=== PATIENT | female | born 1960 | race Caucasian/White ===

== ENCOUNTER 2017-06-04 13:09 | Inpatient (IN) | payer MEDICARE ==
[2017-06-04 14:11] VITALS: BP 110/73
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
[2017-06-05] MEDS ORDERED: Magnesium Hydroxide (MOM) 30 mL UDC PO PRN (07:36)
[2017-06-05] MEDS ORDERED: Maalox 30 mL Cup PO PRN (07:36)
--- NOTE | 2017-06-05 11:25 | Internal Medicine Prog Note ---
Internal Medicine Subjective - Subjective Service Date: 06/05/17 Patient seen and examined:: with staff Patient is:: awake, verbal, in bed, confused Per staff patient has:: no adverse event Internal Medicine Objective - Results Recent Labs: Laboratory Last Values POC Glucose 104 MG/DL (70 - 105) 06/04/17 14:34 - Physical Exam Vitals and I&O: Vital Signs Temp 97.3 F 06/05/17 06:06 Pulse 91 06/05/17 06:06 Resp 20 06/05/17 06:06 BP 135/65 06/05/17 06:06 Pulse Ox 98 06/05/17 06:06 Intake & Output 06/04/17 06/05/17 06/05/17 18:59 06:59 18:59 Intake Total 480 Balance 480 Weight (lbs) 54.431 kg Intake: Oral 480 Other: # Voids 2 Weight Source Estimated Active Medications: Current Medications Acetaminophen (Tylenol) 650 mg PO Q4HR PRN PRN Reason: Mild Pain / Temp above 100 Stop: 08/04/17 07:35 Al Hydrox/Mg Hydrox/Simethicone (Maalox) 30 ml PO Q4HR PRN PRN Reason: GI DISTRESS Stop: 08/04/17 07:35 Amitriptyline HCl (Elavil) 20 mg PO HS ILYA PRN Reason: Protocol Stop: 08/04/17 20:59 Citalopram Hydrobromide (Celexa) 10 mg PO DAILY ILYA PRN Reason: Protocol Stop: 08/04/17 08:59 Clonazepam (Klonopin) 0.5 mg PO TID PRN; Protocol PRN Reason: Agitation Stop: 08/04/17 08:59 Lorazepam (Ativan) 0.5 mg PO Q4HR PRN; Protocol PRN Reason: Anxiety Stop: 07/05/17 07:35 Magnesium Hydroxide (Milk Of Magnesia) 30 ml PO HS PRN PRN Reason: Constipation Mirtazapine (Remeron) 7.5 mg PO HS ILYA PRN Reason: Protocol Stop: 08/03/17 20:59 Last Admin: 06/04/17 21:19 Dose: 7.5 mg Multivitamins/Vitamin C (Theragran) 1 tab PO DAILY ILYA Stop: 08/04/17 08:59 Zolpidem Tartrate (Ambien) 5 mg PO HS PRN PRN Reason: Insomnia Stop: 08/04/17 07:35 General: demented HEENT: NC/AT, PERRLA, EOMI, anicteric sclerae, throat clear Neck: Supple, No JVD, No thyromegaly, +2 carotid pulse wo bruit, No LAD Lungs: CTAB Cardiovascular: RRR, Normal S1, Normal S2, without murmur Abdomen: non-tender, non-distended Extremities: clear Neurological: no change Internal Medicine Assmt/Plan - Assessment Assessment: 1.MULTIPLE SKIN LACERATION OF BOTH FOREARMS. 2.DJD. 3.CHRONIC SMOKING. 4.MAJOR DEPRESSION. - Plan Plan: CHANGE DRESSING WITH BACTROBAN 2/ ONCE A DAY.
--- NOTE | 2017-06-06 03:20 | Progress Notes ---
DATE: 06/05/2017 Case discussed with staff of the patient and reviewed records. The patient continues to be depressed and overwhelmed. She has severe cuts to both of her forearms and wrists. The patient has no memory of what happened. She admits to cutting her arms. Today, I can see the parts were covered and there were full of cuts. She wanted to . Today, she is more cooperative. She continues to have thoughts of wanting to harm himself. The patient had 2 prior suicide attempts as a child. I did initiate Remeron on this patient. She used to be on Cymbalta and she does not like the Cymbalta, so apparently, she used to be on Elavil, temazepam, Cymbalta and Lyrica. I would leave it up to the medical doctor to decide how much Lyrica he wants her on per day. I initiated Remeron on this patient. I will also discontinue Celexa and keep the patient on Remeron to start with and then adjust medication as needed. We will continue outpatient group therapy, milieu therapy, and adjust the medication as needed. JOB# [id number]
[2017-06-06 07:08] LABS: % BASOPHILS 0.4 % (0.0-2.0); MEAN PLATELET VOLUME 7.8 fl; WHITE BLOOD COUNT 7.1 Th/cmm (4.8-10.8)
[2017-06-06 07:12] LABS: % EOSINOPHILS 0.6 % (0.0-5.0); % LYMPHOCYTES 36.9 % (20.0-50.0); % MONOCYTES 11.1 % (2.0-10.0); HEMATOCRIT 41.3 % (41.0-60); HEMOGLOBIN 13.8 gm/dL (12-16); LYMPHOCYTE ABSOLUTE 2.6 Th/cmm (1.5-3.0); MEAN CELL VOLUME 103.4 fl (81-100); MEAN CORPUSCULAR HEMOGLOBIN 34.5 pg (27.0-31.0); MEAN CORPUSCULAR HGB CONC 33.4 pg (28.0-36.0); MONOCYTE ABSOLUTE 0.8 Th/cmm (0.3-1.0); NEUTROPHILE ABSOLUTE 3.7 Th/cmm (1.8-8.0); PLATELET COUNT 305 Th/cmm (150-400); RED CELL DISTRIBUTION WIDTH 11.8 % (11.5-20.0)
[2017-06-06 07:18] LABS: ALB/GLOB RATIO 1.6 (1.0-1.8); ALBUMIN 4.4 gm/dL (3.7-5.3); ALKALINE PHOSPHATASE 60 U/L (34-104); ANION GAP 13.2 (7.0-16.0); BILIRUBIN,TOTAL 0.6 mg/dL (0.3-1.0); BUN - UREA NITROGEN 10 mg/dL (7-25); CALCIUM SERUM 9.6 mg/dL (8.6-10.3); CARBON DIOXIDE 24.5 mEq/L (21.0-31.0); CHLORIDE 102 mEq/L (98-107); CREATININE - SERUM 0.5 mg/dL (0.6-1.2); GFR AFRICAN-AMERICAN > 60.0 ml/min (>90); GFR NON AFRICAN-AMERICAN > 60.0 ml/min; GLUCOSE 101 mg/dL (70-105); POTASSIUM SERUM 3.7 mEq/L (3.5-5.1); SGOT 34 U/L (13-39); SGPT/ALT 28 U/L (7-52); SODIUM SERUM 136 mEq/L (136-145); TOTAL PROTEIN,SERUM 7.2 gm/dL (6.0-8.3)
[2017-06-06] MEDS: Multivitamin Tab PO SCH (09:26)
--- NOTE | 2017-06-06 20:12 | Progress Notes ---
DATE: 06/06/2017 Case was discussed with staff of the patient. The patient was tearful today. She reports she is hearing voices, but she denies that there are command hallucinations. She was fearful. She reports she slept better. She continues to be depressed, overwhelmed, unable to make safe plan for self-care. I will be initiating Abilify on her to help with the hallucinations. She is still unpredictable, impulsive, and needing redirection. Discussed the side effects of the medications and so far no side effects with the Remeron. No sedation. Her current other medications besides Remeron 7.5 mg at bedtime are clonazepam 0.5 mg 3 times a day as needed, which I discontinued, lorazepam 0.5 mg as needed, put on magnesium hydroxide as needed and multivitamin 1 tablet daily. ____ Bactroban that was discontinued. They changed to ____ once apply daily and Ambien 5 mg at bedtime as needed. She is nonsmoker. She is not sure if she got the flu vaccine. Her lab work showed her CBC with high MCV, high MCH, high monocyte and ____ low creatinine. The rest within normal range. We will continue to work with the patient in group therapy, milieu therapy, and adjust medication as needed. JOB# [id number]
--- NOTE | 2017-06-06 21:53 | Internal Medicine Prog Note ---
Internal Medicine Subjective - Subjective Service Date: 06/06/17 Patient seen and examined:: with staff Patient is:: awake, verbal, in bed, confused Per staff patient has:: no adverse event Internal Medicine Objective - Results Result Diagrams: 06/06/17 06:40 06/06/17 06:40 Recent Labs: Laboratory Last Values WBC 7.1 Th/cmm (4.8-10.8) 06/06/17 06:40 RBC 4.00 Mil/cmm (3.80-5.10) 06/06/17 06:40 Hgb 13.8 gm/dL (12-16) 06/06/17 06:40 Hct 41.3 % (41.0-60) 06/06/17 06:40 MCV 103.4 fl (81-100) H 06/06/17 06:40 MCH 34.5 pg (27.0-31.0) H 06/06/17 06:40 MCHC Differential 33.4 pg (28.0-36.0) 06/06/17 06:40 RDW 11.8 % (11.5-20.0) 06/06/17 06:40 Plt Count 305 Th/cmm (150-400) 06/06/17 06:40 MPV 7.8 fl 06/06/17 06:40 Neutrophils % 51.0 % (40.0-80.0) 06/06/17 06:40 Lymphocytes % 36.9 % (20.0-50.0) 06/06/17 06:40 Monocytes % 11.1 % (2.0-10.0) H 06/06/17 06:40 Eosinophils % 0.6 % (0.0-5.0) 06/06/17 06:40 Basophils % 0.4 % (0.0-2.0) 06/06/17 06:40 Sodium 136 mEq/L (136-145) 06/06/17 06:40 Potassium 3.7 mEq/L (3.5-5.1) 06/06/17 06:40 Chloride 102 mEq/L (98-107) 06/06/17 06:40 Carbon Dioxide 24.5 mEq/L (21.0-31.0) 06/06/17 06:40 Anion Gap 13.2 (7.0-16.0) 06/06/17 06:40 BUN 10 mg/dL (7-25) 06/06/17 06:40 Creatinine 0.5 mg/dL (0.6-1.2) L 06/06/17 06:40 Est GFR ( Amer) > 60.0 ml/min (>90) 06/06/17 06:40 Est GFR (Non-Af Amer) > 60.0 ml/min 06/06/17 06:40 BUN/Creatinine Ratio 20.0 06/06/17 06:40 Glucose 101 mg/dL (70-105) 06/06/17 06:40 POC Glucose 104 MG/DL (70 - 105) 06/04/17 14:34 Calcium 9.6 mg/dL (8.6-10.3) 06/06/17 06:40 Total Bilirubin 0.6 mg/dL (0.3-1.0) 06/06/17 06:40 AST 34 U/L (13-39) 06/06/17 06:40 ALT 28 U/L (7-52) 06/06/17 06:40 Alkaline Phosphatase 60 U/L (34-104) 06/06/17 06:40 Total Protein 7.2 gm/dL (6.0-8.3) 06/06/17 06:40 Albumin 4.4 gm/dL (3.7-5.3) 06/06/17 06:40 Globulin 2.8 gm/dL 06/06/17 06:40 Albumin/Globulin Ratio 1.6 (1.0-1.8) 06/06/17 06:40 - Physical Exam Vitals and I&O: Vital Signs Temp 96.9 F 06/06/17 20:00 Pulse 86 06/06/17 20:00 Resp 19 06/06/17 20:00 BP 130/79 06/06/17 20:00 Pulse Ox 98 06/06/17 20:00 Intake & Output 06/06/17 06/06/17 06/07/17 06:59 18:59 06:59 Intake Total 120 1200 Balance 120 1200 Intake: Oral 120 1200 Other: # Voids 3 3 Active Medications: Current Medications Acetaminophen (Tylenol) 650 mg PO Q4HR PRN PRN Reason: Mild Pain / Temp above 100 Stop: 08/04/17 07:35 Last Admin: 06/06/17 20:39 Dose: 650 mg Al Hydrox/Mg Hydrox/Simethicone (Maalox) 30 ml PO Q4HR PRN PRN Reason: GI DISTRESS Stop: 08/04/17 07:35 Aripiprazole (Abilify) 5 mg PO DAILY ILYA PRN Reason: Protocol Stop: 08/05/17 08:59 Last Admin: 06/06/17 09:00 Dose: 5 mg Lorazepam (Ativan) 0.5 mg PO Q4HR PRN; Protocol PRN Reason: Anxiety Stop: 07/05/17 07:35 Magnesium Hydroxide (Milk Of Magnesia) 30 ml PO HS PRN PRN Reason: Constipation Mirtazapine (Remeron) 7.5 mg PO HS ILYA PRN Reason: Protocol Stop: 08/03/17 20:59 Last Admin: 06/06/17 20:37 Dose: 7.5 mg Multivitamins/Vitamin C (Theragran) 1 tab PO DAILY ILYA Stop: 08/04/17 08:59 Last Admin: 06/06/17 09:26 Dose: 1 tab Mupirocin (Bactroban Oint) 1 appl TP DAILY ILYA Stop: 06/19/17 11:23 Last Admin: 06/06/17 10:54 Dose: 1 appl Zolpidem Tartrate (Ambien) 5 mg PO HS PRN PRN Reason: Insomnia Stop: 08/04/17 07:35 General: demented HEENT: NC/AT, PERRLA, EOMI, anicteric sclerae, throat clear Neck: Supple, No JVD, No thyromegaly, +2 carotid pulse wo bruit, No LAD Lungs: CTAB Cardiovascular: RRR, Normal S1, Normal S2, without murmur Abdomen: non-tender, non-distended Extremities: clear Neurological: no change Internal Medicine Assmt/Plan - Assessment Assessment: 1.MULTIPLE SKIN LACERATION OF BOTH FOREARMS. 2.DJD. 3.Copd 4.MAJOR DEPRESSION. - Plan Plan: CHANGE DRESSING WITH BACTROBAN 2/ ONCE A DAY.
[2017-06-07] MEDS ORDERED: Haloperidol Lactate 5 mg/mL 1mL Vial ONE (07:23)
[2017-06-07] MEDS ORDERED: Haloperidol Lactate 5 mg/mL 1mL Vial IM ONE (07:30)
[2017-06-07] MEDS: Multivitamin Tab PO SCH (10:10)
--- NOTE | 2017-06-07 16:40 | Internal Medicine Prog Note ---
Internal Medicine Subjective - Subjective Service Date: 06/07/17 Patient seen and examined:: with staff Patient is:: awake, verbal, in bed, confused Per staff patient has:: no adverse event Internal Medicine Objective - Results Result Diagrams: 06/06/17 06:40 06/06/17 06:40 Recent Labs: Laboratory Last Values WBC 7.1 Th/cmm (4.8-10.8) 06/06/17 06:40 RBC 4.00 Mil/cmm (3.80-5.10) 06/06/17 06:40 Hgb 13.8 gm/dL (12-16) 06/06/17 06:40 Hct 41.3 % (41.0-60) 06/06/17 06:40 MCV 103.4 fl (81-100) H 06/06/17 06:40 MCH 34.5 pg (27.0-31.0) H 06/06/17 06:40 MCHC Differential 33.4 pg (28.0-36.0) 06/06/17 06:40 RDW 11.8 % (11.5-20.0) 06/06/17 06:40 Plt Count 305 Th/cmm (150-400) 06/06/17 06:40 MPV 7.8 fl 06/06/17 06:40 Neutrophils % 51.0 % (40.0-80.0) 06/06/17 06:40 Lymphocytes % 36.9 % (20.0-50.0) 06/06/17 06:40 Monocytes % 11.1 % (2.0-10.0) H 06/06/17 06:40 Eosinophils % 0.6 % (0.0-5.0) 06/06/17 06:40 Basophils % 0.4 % (0.0-2.0) 06/06/17 06:40 Sodium 136 mEq/L (136-145) 06/06/17 06:40 Potassium 3.7 mEq/L (3.5-5.1) 06/06/17 06:40 Chloride 102 mEq/L (98-107) 06/06/17 06:40 Carbon Dioxide 24.5 mEq/L (21.0-31.0) 06/06/17 06:40 Anion Gap 13.2 (7.0-16.0) 06/06/17 06:40 BUN 10 mg/dL (7-25) 06/06/17 06:40 Creatinine 0.5 mg/dL (0.6-1.2) L 06/06/17 06:40 Est GFR ( Amer) > 60.0 ml/min (>90) 06/06/17 06:40 Est GFR (Non-Af Amer) > 60.0 ml/min 06/06/17 06:40 BUN/Creatinine Ratio 20.0 06/06/17 06:40 Glucose 101 mg/dL (70-105) 06/06/17 06:40 POC Glucose 104 MG/DL (70 - 105) 06/04/17 14:34 Calcium 9.6 mg/dL (8.6-10.3) 06/06/17 06:40 Total Bilirubin 0.6 mg/dL (0.3-1.0) 06/06/17 06:40 AST 34 U/L (13-39) 06/06/17 06:40 ALT 28 U/L (7-52) 06/06/17 06:40 Alkaline Phosphatase 60 U/L (34-104) 06/06/17 06:40 Total Protein 7.2 gm/dL (6.0-8.3) 06/06/17 06:40 Albumin 4.4 gm/dL (3.7-5.3) 06/06/17 06:40 Globulin 2.8 gm/dL 06/06/17 06:40 Albumin/Globulin Ratio 1.6 (1.0-1.8) 06/06/17 06:40 - Physical Exam Vitals and I&O: Vital Signs Temp 97.8 F 06/07/17 15:20 Pulse 92 06/07/17 15:20 Resp 18 06/07/17 15:20 BP 105/56 06/07/17 15:20 Pulse Ox 96 06/07/17 15:20 Intake & Output 06/06/17 06/07/17 06/07/17 18:59 06:59 18:59 Intake Total 1200 120 Balance 1200 120 Intake: Oral 1200 120 Other: # Voids 3 3 Active Medications: Current Medications Acetaminophen (Tylenol) 650 mg PO Q4HR PRN PRN Reason: Mild Pain / Temp above 100 Stop: 08/04/17 07:35 Last Admin: 06/06/17 20:39 Dose: 650 mg Al Hydrox/Mg Hydrox/Simethicone (Maalox) 30 ml PO Q4HR PRN PRN Reason: GI DISTRESS Stop: 08/04/17 07:35 Aripiprazole (Abilify) 10 mg PO DAILY ILYA PRN Reason: Protocol Stop: 08/06/17 11:38 Lorazepam (Ativan) 0.5 mg PO Q4HR PRN; Protocol PRN Reason: Anxiety Stop: 07/05/17 07:35 Magnesium Hydroxide (Milk Of Magnesia) 30 ml PO HS PRN PRN Reason: Constipation Mirtazapine (Remeron) 7.5 mg PO HS ILYA PRN Reason: Protocol Stop: 08/03/17 20:59 Last Admin: 06/06/17 20:37 Dose: 7.5 mg Multivitamins/Vitamin C (Theragran) 1 tab PO DAILY ILYA Stop: 08/04/17 08:59 Last Admin: 06/07/17 10:10 Dose: Not Given Mupirocin (Bactroban Oint) 1 appl TP DAILY ILYA Stop: 06/19/17 11:23 Last Admin: 06/06/17 10:54 Dose: 1 appl Zolpidem Tartrate (Ambien) 5 mg PO HS PRN PRN Reason: Insomnia Stop: 08/04/17 07:35 General: demented HEENT: NC/AT, PERRLA, EOMI, anicteric sclerae, throat clear Neck: Supple, No JVD, No thyromegaly, +2 carotid pulse wo bruit, No LAD Lungs: CTAB Cardiovascular: RRR, Normal S1, Normal S2, without murmur Abdomen: non-tender, non-distended Extremities: clear Neurological: no change Internal Medicine Assmt/Plan - Assessment Assessment: 1.MULTIPLE SKIN LACERATION OF BOTH FOREARMS. 2.DJD. 3.Copd 4.MAJOR DEPRESSION. - Plan Plan: CHANGE DRESSING WITH BACTROBAN 2/ ONCE A DAY.
--- NOTE | 2017-06-08 01:33 | Progress Notes ---
DATE: 06/07/2017 Case was discussed with staff of the patient, reviewed records. The patient was found on the floor naked yesterday with her legs open. She was psychotic. She was responding to internal stimuli, unpredictable, impulsive, needing redirection, had to be medicated with Haldol 5 mg and Ativan and Benadryl that was given by Dr. Mills who was happens to be here when this happens. She continues to have poor insight about her behavior. Apparently, she has been living with her , I am not sure if she can take care of her, so we are trying to see if she needs to go to a rehab facility and so far no side effects with the medication, no sedation, no nausea, no extrapyramidal symptoms and I will be increasing the Abilify to 10 mg daily and we will continue to work with the patient in group therapy, milieu therapy, adjust the medication as needed. Her lab work showed her CBC with high MCV, high MCH and high monocyte. The rest within normal range. Chemistry panel with low creatinine and the rest within normal range. JOB# [id number]
[2017-06-08] MEDS: Multivitamin Tab PO SCH (09:00)
--- NOTE | 2017-06-08 22:03 | Internal Medicine Prog Note ---
Internal Medicine Subjective - Subjective Service Date: 06/08/17 Patient seen and examined:: with staff Patient is:: awake, verbal, in bed, confused Per staff patient has:: no adverse event Internal Medicine Objective - Results Result Diagrams: 06/06/17 06:40 06/06/17 06:40 Recent Labs: Laboratory Last Values WBC 7.1 Th/cmm (4.8-10.8) 06/06/17 06:40 RBC 4.00 Mil/cmm (3.80-5.10) 06/06/17 06:40 Hgb 13.8 gm/dL (12-16) 06/06/17 06:40 Hct 41.3 % (41.0-60) 06/06/17 06:40 MCV 103.4 fl (81-100) H 06/06/17 06:40 MCH 34.5 pg (27.0-31.0) H 06/06/17 06:40 MCHC Differential 33.4 pg (28.0-36.0) 06/06/17 06:40 RDW 11.8 % (11.5-20.0) 06/06/17 06:40 Plt Count 305 Th/cmm (150-400) 06/06/17 06:40 MPV 7.8 fl 06/06/17 06:40 Neutrophils % 51.0 % (40.0-80.0) 06/06/17 06:40 Lymphocytes % 36.9 % (20.0-50.0) 06/06/17 06:40 Monocytes % 11.1 % (2.0-10.0) H 06/06/17 06:40 Eosinophils % 0.6 % (0.0-5.0) 06/06/17 06:40 Basophils % 0.4 % (0.0-2.0) 06/06/17 06:40 Sodium 136 mEq/L (136-145) 06/06/17 06:40 Potassium 3.7 mEq/L (3.5-5.1) 06/06/17 06:40 Chloride 102 mEq/L (98-107) 06/06/17 06:40 Carbon Dioxide 24.5 mEq/L (21.0-31.0) 06/06/17 06:40 Anion Gap 13.2 (7.0-16.0) 06/06/17 06:40 BUN 10 mg/dL (7-25) 06/06/17 06:40 Creatinine 0.5 mg/dL (0.6-1.2) L 06/06/17 06:40 Est GFR ( Amer) > 60.0 ml/min (>90) 06/06/17 06:40 Est GFR (Non-Af Amer) > 60.0 ml/min 06/06/17 06:40 BUN/Creatinine Ratio 20.0 06/06/17 06:40 Glucose 101 mg/dL (70-105) 06/06/17 06:40 POC Glucose 104 MG/DL (70 - 105) 06/04/17 14:34 Calcium 9.6 mg/dL (8.6-10.3) 06/06/17 06:40 Total Bilirubin 0.6 mg/dL (0.3-1.0) 06/06/17 06:40 AST 34 U/L (13-39) 06/06/17 06:40 ALT 28 U/L (7-52) 06/06/17 06:40 Alkaline Phosphatase 60 U/L (34-104) 06/06/17 06:40 Total Protein 7.2 gm/dL (6.0-8.3) 06/06/17 06:40 Albumin 4.4 gm/dL (3.7-5.3) 06/06/17 06:40 Globulin 2.8 gm/dL 06/06/17 06:40 Albumin/Globulin Ratio 1.6 (1.0-1.8) 06/06/17 06:40 - Physical Exam Vitals and I&O: Vital Signs Temp 97.4 F 06/08/17 14:00 Pulse 90 06/08/17 14:00 Resp 18 06/08/17 14:00 BP 120/77 06/08/17 14:00 Pulse Ox 98 06/08/17 14:00 Intake & Output 06/08/17 06/08/17 06/09/17 06:59 18:59 06:59 Intake Total 1200 900 Balance 1200 900 Intake: Oral 1200 900 Other: # Voids 3 4 # Bowel Movements 1 Active Medications: Current Medications Acetaminophen (Tylenol) 650 mg PO Q4HR PRN PRN Reason: Mild Pain / Temp above 100 Stop: 08/04/17 07:35 Last Admin: 06/06/17 20:39 Dose: 650 mg Al Hydrox/Mg Hydrox/Simethicone (Maalox) 30 ml PO Q4HR PRN PRN Reason: GI DISTRESS Stop: 08/04/17 07:35 Aripiprazole (Abilify) 10 mg PO DAILY ILYA PRN Reason: Protocol Stop: 08/06/17 11:38 Last Admin: 06/08/17 09:00 Dose: 10 mg Lorazepam (Ativan) 0.5 mg PO Q4HR PRN; Protocol PRN Reason: Anxiety Stop: 07/05/17 07:35 Last Admin: 06/08/17 02:00 Dose: 0.5 mg Magnesium Hydroxide (Milk Of Magnesia) 30 ml PO HS PRN PRN Reason: Constipation Mirtazapine (Remeron) 7.5 mg PO HS ILYA PRN Reason: Protocol Stop: 08/03/17 20:59 Last Admin: 06/08/17 21:07 Dose: 7.5 mg Multivitamins/Vitamin C (Theragran) 1 tab PO DAILY ILYA Stop: 08/04/17 08:59 Last Admin: 06/08/17 09:00 Dose: 1 tab Mupirocin (Bactroban Oint) 1 appl TP DAILY ILYA Stop: 06/19/17 11:23 Last Admin: 06/08/17 17:16 Dose: Not Given Zolpidem Tartrate (Ambien) 5 mg PO HS PRN PRN Reason: Insomnia Stop: 08/04/17 07:35 Last Admin: 06/08/17 21:07 Dose: 5 mg General: demented HEENT: NC/AT, PERRLA, EOMI, anicteric sclerae, throat clear Neck: Supple, No JVD, No thyromegaly, +2 carotid pulse wo bruit, No LAD Lungs: CTAB Cardiovascular: RRR, Normal S1, Normal S2, without murmur Abdomen: non-tender, non-distended Extremities: clear Neurological: no change Internal Medicine Assmt/Plan - Assessment Assessment: 1.MULTIPLE SKIN LACERATION OF BOTH FOREARMS. 2.DJD. 3.Copd 4.MAJOR DEPRESSION. - Plan Plan: CHANGE DRESSING WITH BACTROBAN 2/ ONCE A DAY.
--- NOTE | 2017-06-09 00:47 | Consultation ---
DATE OF CONSULTATION: 06/08/2017 SUBJECTIVE: Case was discussed with the staff of the patient and reviewed records. The patient continues to be internally preoccupied, psychotic, very poor insight about her psychotic symptoms, continues to be unpredictable, impulsive, continues to have poor insight. Her who discussed the case with the rn case manager hospice reported that ____ willing to make sure he will take care of her upon discharge. Also I agreed that she may need to go to a place for a while until she is stable. She is sleeping better, eating better, continues to be internally preoccupied, unable to make safe a plan for self-care. She continues to report hearing voices at times; however, no side effects to the medication, no sedation, no nausea, no extrapyramidal symptoms. Still unpredictable, impulsive, needing redirections, still not ready to go to a lesser level of care because of her psychotic symptoms and serious suicide attempts from multiple longitudinal lacerations to both of her forearms. I did increase Abilify yesterday, it is early to make further adjustment. She is also on multivitamin and ____ ointment and we will continue to work with the patient in group therapy, milieu therapy, adjust medications as needed. JOB# [id number]
[2017-06-09] MEDS: Multivitamin Tab PO SCH (08:56)
--- NOTE | 2017-06-09 10:47 | Internal Medicine Prog Note ---
Internal Medicine Subjective - Subjective Service Date: 06/09/17 Patient seen and examined:: with staff (SHE DENIES ANY PAIN) Patient is:: awake, verbal, in bed, confused Per staff patient has:: no adverse event Internal Medicine Objective - Results Result Diagrams: 06/06/17 06:40 06/06/17 06:40 Recent Labs: Laboratory Last Values WBC 7.1 Th/cmm (4.8-10.8) 06/06/17 06:40 RBC 4.00 Mil/cmm (3.80-5.10) 06/06/17 06:40 Hgb 13.8 gm/dL (12-16) 06/06/17 06:40 Hct 41.3 % (41.0-60) 06/06/17 06:40 MCV 103.4 fl (81-100) H 06/06/17 06:40 MCH 34.5 pg (27.0-31.0) H 06/06/17 06:40 MCHC Differential 33.4 pg (28.0-36.0) 06/06/17 06:40 RDW 11.8 % (11.5-20.0) 06/06/17 06:40 Plt Count 305 Th/cmm (150-400) 06/06/17 06:40 MPV 7.8 fl 06/06/17 06:40 Neutrophils % 51.0 % (40.0-80.0) 06/06/17 06:40 Lymphocytes % 36.9 % (20.0-50.0) 06/06/17 06:40 Monocytes % 11.1 % (2.0-10.0) H 06/06/17 06:40 Eosinophils % 0.6 % (0.0-5.0) 06/06/17 06:40 Basophils % 0.4 % (0.0-2.0) 06/06/17 06:40 Sodium 136 mEq/L (136-145) 06/06/17 06:40 Potassium 3.7 mEq/L (3.5-5.1) 06/06/17 06:40 Chloride 102 mEq/L (98-107) 06/06/17 06:40 Carbon Dioxide 24.5 mEq/L (21.0-31.0) 06/06/17 06:40 Anion Gap 13.2 (7.0-16.0) 06/06/17 06:40 BUN 10 mg/dL (7-25) 06/06/17 06:40 Creatinine 0.5 mg/dL (0.6-1.2) L 06/06/17 06:40 Est GFR ( Amer) > 60.0 ml/min (>90) 06/06/17 06:40 Est GFR (Non-Af Amer) > 60.0 ml/min 06/06/17 06:40 BUN/Creatinine Ratio 20.0 06/06/17 06:40 Glucose 101 mg/dL (70-105) 06/06/17 06:40 POC Glucose 104 MG/DL (70 - 105) 06/04/17 14:34 Calcium 9.6 mg/dL (8.6-10.3) 06/06/17 06:40 Total Bilirubin 0.6 mg/dL (0.3-1.0) 06/06/17 06:40 AST 34 U/L (13-39) 06/06/17 06:40 ALT 28 U/L (7-52) 06/06/17 06:40 Alkaline Phosphatase 60 U/L (34-104) 06/06/17 06:40 Total Protein 7.2 gm/dL (6.0-8.3) 06/06/17 06:40 Albumin 4.4 gm/dL (3.7-5.3) 06/06/17 06:40 Globulin 2.8 gm/dL 06/06/17 06:40 Albumin/Globulin Ratio 1.6 (1.0-1.8) 06/06/17 06:40 - Physical Exam Vitals and I&O: Vital Signs Temp 98 F 06/09/17 06:25 Pulse 73 06/09/17 06:25 Resp 19 06/09/17 09:41 BP 111/66 06/09/17 06:25 Pulse Ox 97 06/09/17 06:25 Intake & Output 06/08/17 06/09/17 06/09/17 18:59 06:59 18:59 Intake Total 900 240 Balance 900 240 Intake: Oral 900 240 Other: # Voids 4 1 # Bowel Movements 1 Stool Characteristics Formed Brown Active Medications: Current Medications Acetaminophen (Tylenol) 650 mg PO Q4HR PRN PRN Reason: Mild Pain / Temp above 100 Stop: 08/04/17 07:35 Last Admin: 06/06/17 20:39 Dose: 650 mg Al Hydrox/Mg Hydrox/Simethicone (Maalox) 30 ml PO Q4HR PRN PRN Reason: GI DISTRESS Stop: 08/04/17 07:35 Aripiprazole (Abilify) 10 mg PO DAILY ILYA PRN Reason: Protocol Stop: 08/06/17 11:38 Last Admin: 06/09/17 08:56 Dose: 10 mg Lorazepam (Ativan) 0.5 mg PO Q4HR PRN; Protocol PRN Reason: Anxiety Stop: 07/05/17 07:35 Last Admin: 06/09/17 01:00 Dose: 0.5 mg Magnesium Hydroxide (Milk Of Magnesia) 30 ml PO HS PRN PRN Reason: Constipation Mirtazapine (Remeron) 7.5 mg PO HS ILYA PRN Reason: Protocol Stop: 08/03/17 20:59 Last Admin: 06/08/17 21:07 Dose: 7.5 mg Multivitamins/Vitamin C (Theragran) 1 tab PO DAILY ILYA Stop: 08/04/17 08:59 Last Admin: 06/09/17 08:56 Dose: 1 tab Mupirocin (Bactroban Oint) 1 appl TP DAILY ILYA Stop: 06/19/17 11:23 Last Admin: 06/09/17 10:11 Dose: 1 appl Zolpidem Tartrate (Ambien) 5 mg PO HS PRN PRN Reason: Insomnia Stop: 08/04/17 07:35 Last Admin: 06/08/17 21:07 Dose: 5 mg General: demented HEENT: NC/AT, PERRLA, EOMI, anicteric sclerae, throat clear Neck: Supple, No JVD, No thyromegaly, +2 carotid pulse wo bruit, No LAD Lungs: CTAB Cardiovascular: RRR, Normal S1, Normal S2, without murmur Abdomen: non-tender, non-distended Extremities: clear Neurological: no change Internal Medicine Assmt/Plan - Assessment Assessment: 1.MULTIPLE SKIN LACERATION OF BOTH FOREARMS. 2.DJD. 3.Copd 4.MAJOR DEPRESSION. - Plan Plan: CONTINUE ON CURRENT MEDICATION AND WOUND CARE.
[2017-06-10] MEDS: Multivitamin Tab PO SCH (08:41)
--- NOTE | 2017-06-10 21:08 | Internal Medicine Prog Note ---
Internal Medicine Subjective - Subjective Service Date: 06/10/17 Patient seen and examined:: without staff Patient is:: awake, verbal, in bed, confused Per staff patient has:: no adverse event Internal Medicine Objective - Results Result Diagrams: 06/06/17 06:40 06/06/17 06:40 Recent Labs: Laboratory Last Values WBC 7.1 Th/cmm (4.8-10.8) 06/06/17 06:40 RBC 4.00 Mil/cmm (3.80-5.10) 06/06/17 06:40 Hgb 13.8 gm/dL (12-16) 06/06/17 06:40 Hct 41.3 % (41.0-60) 06/06/17 06:40 MCV 103.4 fl (81-100) H 06/06/17 06:40 MCH 34.5 pg (27.0-31.0) H 06/06/17 06:40 MCHC Differential 33.4 pg (28.0-36.0) 06/06/17 06:40 RDW 11.8 % (11.5-20.0) 06/06/17 06:40 Plt Count 305 Th/cmm (150-400) 06/06/17 06:40 MPV 7.8 fl 06/06/17 06:40 Neutrophils % 51.0 % (40.0-80.0) 06/06/17 06:40 Lymphocytes % 36.9 % (20.0-50.0) 06/06/17 06:40 Monocytes % 11.1 % (2.0-10.0) H 06/06/17 06:40 Eosinophils % 0.6 % (0.0-5.0) 06/06/17 06:40 Basophils % 0.4 % (0.0-2.0) 06/06/17 06:40 Sodium 136 mEq/L (136-145) 06/06/17 06:40 Potassium 3.7 mEq/L (3.5-5.1) 06/06/17 06:40 Chloride 102 mEq/L (98-107) 06/06/17 06:40 Carbon Dioxide 24.5 mEq/L (21.0-31.0) 06/06/17 06:40 Anion Gap 13.2 (7.0-16.0) 06/06/17 06:40 BUN 10 mg/dL (7-25) 06/06/17 06:40 Creatinine 0.5 mg/dL (0.6-1.2) L 06/06/17 06:40 Est GFR ( Amer) > 60.0 ml/min (>90) 06/06/17 06:40 Est GFR (Non-Af Amer) > 60.0 ml/min 06/06/17 06:40 BUN/Creatinine Ratio 20.0 06/06/17 06:40 Glucose 101 mg/dL (70-105) 06/06/17 06:40 POC Glucose 104 MG/DL (70 - 105) 06/04/17 14:34 Calcium 9.6 mg/dL (8.6-10.3) 06/06/17 06:40 Total Bilirubin 0.6 mg/dL (0.3-1.0) 06/06/17 06:40 AST 34 U/L (13-39) 06/06/17 06:40 ALT 28 U/L (7-52) 06/06/17 06:40 Alkaline Phosphatase 60 U/L (34-104) 06/06/17 06:40 Total Protein 7.2 gm/dL (6.0-8.3) 06/06/17 06:40 Albumin 4.4 gm/dL (3.7-5.3) 06/06/17 06:40 Globulin 2.8 gm/dL 06/06/17 06:40 Albumin/Globulin Ratio 1.6 (1.0-1.8) 06/06/17 06:40 - Physical Exam Vitals and I&O: Vital Signs Temp 97.4 F 06/10/17 20:50 Pulse 72 06/10/17 20:50 Resp 19 06/10/17 20:50 BP 125/80 06/10/17 20:50 Pulse Ox 97 06/10/17 20:50 Intake & Output 06/10/17 06/10/17 06/11/17 06:59 18:59 06:59 Intake Total 120 1000 120 Balance 120 1000 120 Intake: Oral 120 1000 120 Other: # Voids 3 4 1 # Bowel Movements 1 0 Active Medications: Current Medications Acetaminophen (Tylenol) 650 mg PO Q4HR PRN PRN Reason: Mild Pain / Temp above 100 Stop: 08/04/17 07:35 Last Admin: 06/06/17 20:39 Dose: 650 mg Al Hydrox/Mg Hydrox/Simethicone (Maalox) 30 ml PO Q4HR PRN PRN Reason: GI DISTRESS Stop: 08/04/17 07:35 Aripiprazole (Abilify) 10 mg PO DAILY ILYA PRN Reason: Protocol Stop: 08/06/17 11:38 Last Admin: 06/10/17 08:41 Dose: 10 mg Lorazepam (Ativan) 0.5 mg PO Q4HR PRN; Protocol PRN Reason: Anxiety Stop: 07/05/17 07:35 Last Admin: 06/09/17 01:00 Dose: 0.5 mg Magnesium Hydroxide (Milk Of Magnesia) 30 ml PO HS PRN PRN Reason: Constipation Mirtazapine (Remeron) 7.5 mg PO HS ILYA PRN Reason: Protocol Stop: 08/03/17 20:59 Last Admin: 06/09/17 21:06 Dose: 7.5 mg Multivitamins/Vitamin C (Theragran) 1 tab PO DAILY ILYA Stop: 08/04/17 08:59 Last Admin: 06/10/17 08:41 Dose: 1 tab Mupirocin (Bactroban Oint) 1 appl TP DAILY ILYA Stop: 06/19/17 11:23 Last Admin: 06/10/17 10:49 Dose: 1 appl Zolpidem Tartrate (Ambien) 5 mg PO HS PRN PRN Reason: Insomnia Stop: 08/04/17 07:35 Last Admin: 06/09/17 21:17 Dose: 5 mg General: demented HEENT: NC/AT, PERRLA, EOMI, anicteric sclerae, throat clear Neck: Supple, No JVD, No thyromegaly, +2 carotid pulse wo bruit, No LAD Lungs: CTAB Cardiovascular: RRR, Normal S1, Normal S2, without murmur Abdomen: non-tender, non-distended Extremities: clear Neurological: no change Internal Medicine Assmt/Plan - Assessment Assessment: 1.MULTIPLE SKIN LACERATION OF BOTH FOREARMS. 2.DJD. 3.Copd 4.MAJOR DEPRESSION. - Plan Plan: CONTINUE ON CURRENT MEDICATION AND WOUND CARE.
[2017-06-11] MEDS: Multivitamin Tab PO SCH (09:44)
--- NOTE | 2017-06-11 10:17 | Progress Notes ---
DATE: 06/09/2017 COVERING FOR: Dr. Shaikh and Dr. Mills SUBJECTIVE: The patient interviewed. Case was discussed with staff and the chart was reviewed. The patient apparently has been depressed, she has been staying in her room and is withdrawn and very quiet. She barely leave the room and she needs prompting for her self-care. She has been taking her medications. She apparently is becoming much more calm. She states at bedside that she is feeling tired and she states that she continues to feel depressed. Apparently, she has cut herself on both arms. She is very guarded in regards to suicidal and homicidal ideations. The patient also is a minimally engaged with the interview, also withdrawn, also with the depressed affect. Poor eye contact and her speech is soft and minimal. ASSESSMENT: This is a 57-year-old female with a history of depression. The patient remained isolated in her room. She apparently has cut both arms leading to hospitalization. She remains withdrawn, depressed. Minimally engage with the interview. She apparently has been much more calm and improving and taking her medications. PLAN: I will continue the patient on acute hospitalization. I will continue medication as prescribed. I will encourage the patient to verbalize her needs. I will encourage the patient to participate in group and milieu therapy. Encourage the patient to work with social work and case picker for discharge planning. JOB# [id number]
--- NOTE | 2017-06-11 10:55 | Progress Notes ---
DATE: 06/10/[address] Jose Mills and Dr. Shaikh. SUBJECTIVE: The patient interviewed. Case discussed with staff and chart reviewed. The patient's addressing to her arms have been changed. She requires ongoing prompting for her self-care. She remains depressed. She is isolated. She is withdrawn. She is not attending groups. She is not socializing with others. She is not communicating her needs. MENTAL STATUS EXAMINATION: The patient appears depressed. She has a constricted affect. She is minimally engaged with the interview. She is very guarded. Her speech is soft and minimal. She appears to be confused and disorganized. Unable to assess suicidal, homicidal ideations as the patient states, "I don't know" and the patient in addition is alert and oriented to her name and she knows that she is in the hospital. Otherwise, she has a very poor insight, judgment poor. ASSESSMENT: This is a 57-year-old female with a history of depression. The patient at this time continues to remain depressed, isolative, withdrawn, stays in her room, not socializing with peers and others and require prompting for her needs. PLAN: We will continue the patient's acute hospitalization. Continue medication as prescribed. Encourage the patient to verbalize her need and to participate in group and milieu therapy. Encourage the patient to work with social work coordinator and spring encaser for discharge planning and need for community resources. JOB# [id number]
--- NOTE | 2017-06-11 21:45 | Internal Medicine Prog Note ---
Internal Medicine Subjective - Subjective Patient seen and examined:: without staff Patient is:: awake, verbal, in bed, confused Per staff patient has:: no adverse event Internal Medicine Objective - Results Result Diagrams: 06/06/17 06:40 06/06/17 06:40 Recent Labs: Laboratory Last Values WBC 7.1 Th/cmm (4.8-10.8) 06/06/17 06:40 RBC 4.00 Mil/cmm (3.80-5.10) 06/06/17 06:40 Hgb 13.8 gm/dL (12-16) 06/06/17 06:40 Hct 41.3 % (41.0-60) 06/06/17 06:40 MCV 103.4 fl (81-100) H 06/06/17 06:40 MCH 34.5 pg (27.0-31.0) H 06/06/17 06:40 MCHC Differential 33.4 pg (28.0-36.0) 06/06/17 06:40 RDW 11.8 % (11.5-20.0) 06/06/17 06:40 Plt Count 305 Th/cmm (150-400) 06/06/17 06:40 MPV 7.8 fl 06/06/17 06:40 Neutrophils % 51.0 % (40.0-80.0) 06/06/17 06:40 Lymphocytes % 36.9 % (20.0-50.0) 06/06/17 06:40 Monocytes % 11.1 % (2.0-10.0) H 06/06/17 06:40 Eosinophils % 0.6 % (0.0-5.0) 06/06/17 06:40 Basophils % 0.4 % (0.0-2.0) 06/06/17 06:40 Sodium 136 mEq/L (136-145) 06/06/17 06:40 Potassium 3.7 mEq/L (3.5-5.1) 06/06/17 06:40 Chloride 102 mEq/L (98-107) 06/06/17 06:40 Carbon Dioxide 24.5 mEq/L (21.0-31.0) 06/06/17 06:40 Anion Gap 13.2 (7.0-16.0) 06/06/17 06:40 BUN 10 mg/dL (7-25) 06/06/17 06:40 Creatinine 0.5 mg/dL (0.6-1.2) L 06/06/17 06:40 Est GFR ( Amer) > 60.0 ml/min (>90) 06/06/17 06:40 Est GFR (Non-Af Amer) > 60.0 ml/min 06/06/17 06:40 BUN/Creatinine Ratio 20.0 06/06/17 06:40 Glucose 101 mg/dL (70-105) 06/06/17 06:40 POC Glucose 104 MG/DL (70 - 105) 06/04/17 14:34 Calcium 9.6 mg/dL (8.6-10.3) 06/06/17 06:40 Total Bilirubin 0.6 mg/dL (0.3-1.0) 06/06/17 06:40 AST 34 U/L (13-39) 06/06/17 06:40 ALT 28 U/L (7-52) 06/06/17 06:40 Alkaline Phosphatase 60 U/L (34-104) 06/06/17 06:40 Total Protein 7.2 gm/dL (6.0-8.3) 06/06/17 06:40 Albumin 4.4 gm/dL (3.7-5.3) 06/06/17 06:40 Globulin 2.8 gm/dL 06/06/17 06:40 Albumin/Globulin Ratio 1.6 (1.0-1.8) 06/06/17 06:40 - Physical Exam Vitals and I&O: Vital Signs Temp 98.6 F 06/11/17 20:11 Pulse 86 06/11/17 20:11 Resp 19 06/11/17 20:11 BP 93/58 06/11/17 20:11 Pulse Ox 96 06/11/17 20:11 Intake & Output 06/11/17 06/11/17 06/12/17 06:59 18:59 06:59 Intake Total 240 900 240 Balance 240 900 240 Intake: Oral 240 900 240 Other: # Voids 2 3 1 # Bowel Movements 0 1 Active Medications: Current Medications Acetaminophen (Tylenol) 650 mg PO Q4HR PRN PRN Reason: Mild Pain / Temp above 100 Stop: 08/04/17 07:35 Last Admin: 06/06/17 20:39 Dose: 650 mg Al Hydrox/Mg Hydrox/Simethicone (Maalox) 30 ml PO Q4HR PRN PRN Reason: GI DISTRESS Stop: 08/04/17 07:35 Aripiprazole (Abilify) 10 mg PO DAILY ILYA PRN Reason: Protocol Stop: 08/06/17 11:38 Last Admin: 06/11/17 09:44 Dose: 10 mg Lorazepam (Ativan) 0.5 mg PO Q4HR PRN; Protocol PRN Reason: Anxiety Stop: 07/05/17 07:35 Last Admin: 06/11/17 09:44 Dose: 0.5 mg Magnesium Hydroxide (Milk Of Magnesia) 30 ml PO HS PRN PRN Reason: Constipation Mirtazapine (Remeron) 15 mg PO HS ILYA PRN Reason: Protocol Stop: 08/10/17 12:57 Last Admin: 06/11/17 21:02 Dose: 15 mg Multivitamins/Vitamin C (Theragran) 1 tab PO DAILY ILYA Stop: 08/04/17 08:59 Last Admin: 06/11/17 09:44 Dose: 1 tab Mupirocin (Bactroban Oint) 1 appl TP DAILY ILYA Stop: 06/19/17 11:23 Last Admin: 06/11/17 09:44 Dose: Not Given Zolpidem Tartrate (Ambien) 5 mg PO HS PRN PRN Reason: Insomnia Stop: 08/04/17 07:35 Last Admin: 06/10/17 21:16 Dose: 5 mg General: demented HEENT: NC/AT, PERRLA, EOMI, anicteric sclerae, throat clear Neck: Supple, No JVD, No thyromegaly, +2 carotid pulse wo bruit, No LAD Lungs: CTAB Cardiovascular: RRR, Normal S1, Normal S2, without murmur Abdomen: non-tender, non-distended Extremities: clear Neurological: no change Internal Medicine Assmt/Plan - Assessment Assessment: 1.MULTIPLE SKIN LACERATION OF BOTH FOREARMS. 2.DJD. 3.Copd 4.MAJOR DEPRESSION. - Plan Plan: CONTINUE ON CURRENT MEDICATION AND WOUND CARE.
--- NOTE | 2017-06-11 23:43 | Progress Notes ---
DATE: 06/11/2017 SUBJECTIVE: Case was discussed with staff of the patient, reviewed records. The patient continues to be depressed, overwhelmed, continues to be unpredictable and impulsive. She continues to be responding to internal stimuli. She tolerated the adjustment in medication with no side effects. She is a high risk because she is on sedating medication and also she is impulsive, unpredictable. She is staying in bed most of the time. MEDICATIONS: Her current medication is Remeron 7.5 mg at bedtime, Abilify that was increased to 10 mg daily and multivitamin 1 tablet daily, Bactroban ointment daily, Ambien 5 mg at bedtime as needed. No side effects, no sedation, no nausea, no extrapyramidal symptoms. PLAN: I will be increasing her Remeron to 15 mg at bedtime to help with her depression and we will continue to work with the patient in group therapy, milieu therapy, and adjust the medications as needed. I would like to add ____ on Sunday, it was upheld on the ground of danger to self. JOB# [id number]
[2017-06-12] MEDS: Multivitamin Tab PO SCH (08:51)
--- NOTE | 2017-06-12 15:57 | Progress Notes ---
DATE: 06/12/2017 SUBJECTIVE: Case discussed with staff of patient, reviewed records. The patient continues to be depressed, overwhelmed, continues to be unable to make safe plan for self-care. Continues to be unpredictable, impulsive, needing redirection. She is staying in bed mostly. She is at high fall risk. Continues to need redirection. Working on placement and SNF facility and will continue with no side effects with the mediations, sedation, nausea, no extrapyramidal symptoms and I will continue to work with the patient group therapy, milieu therapy, adjust medications as needed. JOB# [id number]
--- NOTE | 2017-06-12 22:06 | Internal Medicine Prog Note ---
Internal Medicine Subjective - Subjective Service Date: 06/12/17 Patient seen and examined:: with staff (SHE FEELS BETTER,NO PAIN) Patient is:: awake, verbal, in bed, confused Per staff patient has:: no adverse event Internal Medicine Objective - Results Result Diagrams: 06/06/17 06:40 06/06/17 06:40 Recent Labs: Laboratory Last Values WBC 7.1 Th/cmm (4.8-10.8) 06/06/17 06:40 RBC 4.00 Mil/cmm (3.80-5.10) 06/06/17 06:40 Hgb 13.8 gm/dL (12-16) 06/06/17 06:40 Hct 41.3 % (41.0-60) 06/06/17 06:40 MCV 103.4 fl (81-100) H 06/06/17 06:40 MCH 34.5 pg (27.0-31.0) H 06/06/17 06:40 MCHC Differential 33.4 pg (28.0-36.0) 06/06/17 06:40 RDW 11.8 % (11.5-20.0) 06/06/17 06:40 Plt Count 305 Th/cmm (150-400) 06/06/17 06:40 MPV 7.8 fl 06/06/17 06:40 Neutrophils % 51.0 % (40.0-80.0) 06/06/17 06:40 Lymphocytes % 36.9 % (20.0-50.0) 06/06/17 06:40 Monocytes % 11.1 % (2.0-10.0) H 06/06/17 06:40 Eosinophils % 0.6 % (0.0-5.0) 06/06/17 06:40 Basophils % 0.4 % (0.0-2.0) 06/06/17 06:40 Sodium 136 mEq/L (136-145) 06/06/17 06:40 Potassium 3.7 mEq/L (3.5-5.1) 06/06/17 06:40 Chloride 102 mEq/L (98-107) 06/06/17 06:40 Carbon Dioxide 24.5 mEq/L (21.0-31.0) 06/06/17 06:40 Anion Gap 13.2 (7.0-16.0) 06/06/17 06:40 BUN 10 mg/dL (7-25) 06/06/17 06:40 Creatinine 0.5 mg/dL (0.6-1.2) L 06/06/17 06:40 Est GFR ( Amer) > 60.0 ml/min (>90) 06/06/17 06:40 Est GFR (Non-Af Amer) > 60.0 ml/min 06/06/17 06:40 BUN/Creatinine Ratio 20.0 06/06/17 06:40 Glucose 101 mg/dL (70-105) 06/06/17 06:40 POC Glucose 104 MG/DL (70 - 105) 06/04/17 14:34 Calcium 9.6 mg/dL (8.6-10.3) 06/06/17 06:40 Total Bilirubin 0.6 mg/dL (0.3-1.0) 06/06/17 06:40 AST 34 U/L (13-39) 06/06/17 06:40 ALT 28 U/L (7-52) 06/06/17 06:40 Alkaline Phosphatase 60 U/L (34-104) 06/06/17 06:40 Total Protein 7.2 gm/dL (6.0-8.3) 06/06/17 06:40 Albumin 4.4 gm/dL (3.7-5.3) 06/06/17 06:40 Globulin 2.8 gm/dL 06/06/17 06:40 Albumin/Globulin Ratio 1.6 (1.0-1.8) 06/06/17 06:40 - Physical Exam Vitals and I&O: Vital Signs Temp 97.6 F 06/12/17 21:14 Pulse 76 06/12/17 21:14 Resp 19 06/12/17 21:14 BP 128/69 06/12/17 21:14 Pulse Ox 95 06/12/17 21:14 Intake & Output 06/12/17 06/12/17 06/13/17 06:59 18:59 06:59 Intake Total 360 900 360 Balance 360 900 360 Intake: Oral 360 900 360 Other: # Voids 1 4 1 # Bowel Movements 0 1 Active Medications: Current Medications Acetaminophen (Tylenol) 650 mg PO Q4HR PRN PRN Reason: Mild Pain / Temp above 100 Stop: 08/04/17 07:35 Last Admin: 06/06/17 20:39 Dose: 650 mg Al Hydrox/Mg Hydrox/Simethicone (Maalox) 30 ml PO Q4HR PRN PRN Reason: GI DISTRESS Stop: 08/04/17 07:35 Aripiprazole (Abilify) 10 mg PO DAILY ILYA PRN Reason: Protocol Stop: 08/06/17 11:38 Last Admin: 06/12/17 08:51 Dose: 10 mg Lorazepam (Ativan) 0.5 mg PO Q4HR PRN; Protocol PRN Reason: Anxiety Stop: 07/05/17 07:35 Last Admin: 06/11/17 09:44 Dose: 0.5 mg Magnesium Hydroxide (Milk Of Magnesia) 30 ml PO HS PRN PRN Reason: Constipation Mirtazapine (Remeron) 15 mg PO HS ILYA PRN Reason: Protocol Stop: 08/10/17 12:57 Last Admin: 06/12/17 20:36 Dose: 15 mg Multivitamins/Vitamin C (Theragran) 1 tab PO DAILY ILYA Stop: 08/04/17 08:59 Last Admin: 06/12/17 08:51 Dose: 1 tab Mupirocin (Bactroban Oint) 1 appl TP DAILY ILYA Stop: 06/19/17 11:23 Last Admin: 06/12/17 08:51 Dose: 1 appl Zolpidem Tartrate (Ambien) 5 mg PO HS PRN PRN Reason: Insomnia Stop: 08/04/17 07:35 Last Admin: 06/10/17 21:16 Dose: 5 mg General: demented HEENT: NC/AT, PERRLA, EOMI, anicteric sclerae, throat clear Neck: Supple, No JVD, No thyromegaly, +2 carotid pulse wo bruit, No LAD Lungs: CTAB Cardiovascular: RRR, Normal S1, Normal S2, without murmur Abdomen: non-tender, non-distended Extremities: clear Neurological: no change Internal Medicine Assmt/Plan - Assessment Assessment: 1.MULTIPLE SKIN LACERATION OF BOTH FOREARMS. 2.DJD. 3.Copd 4.MAJOR DEPRESSION. - Plan Plan: CONTINUE ON CURRENT MEDICATION AND WOUND CARE. Nutritional Asmnt/Malnutr-PDOC - Dietary Evaluation Malnutrition Findings (Please click <Entered> for more info): Nutritional Asmnt/Malnutrition Start: 06/12/17 16: 32 Text: Status: Complete Freq: Document 06/12/17 16:32 EMMASUGAR (Rec: 06/12/17 16:40 [email or web address] [id number]) Nutritional Asmnt/Malnutrition Patient General Information Nutritional Screening Low Risk Diagnosis psychosis Pertinent Medical Hx/Surgical Hx depression, chronic smoking, DJD Subjective Information Pt seen lying in bed at time of viist, awake and alert. Pt reported appetite fine. Per EMR, PO intake 75-100%. Current Diet Order/ Nutrition Support regular Pertinent Medications remeron, theragran Pertinent Labs / cr 0.5 Nutritional Hx/Data Height 1.57 m Height (Calculated Centimeters) 157.5 Current Weight (lbs) 54.431 kg Weight (Calculated Kilograms) 54.4 Weight (Calculated Grams) 47342.1 [place] Body Weight 110 Body Mass Index (BMI) 21.9 Weight Status Approriate GI Symptoms GI Symptoms None Last BM 06/11 Difficult in: None Skin Integrity/Comment: wounds to both extremities Current %PO Good (75-100%) Estimated Nutritional Goals BEE in Kcals: Using Current wt Calories/Kcals/Kg 25-30 Kcals Calculated [id number] Protein: Using Current wt Protein g/k-1.2 Protein Calculated 55-66 Fluid: ml 1375-1650ml (1ml/kcal) Nutritional Problem No current Nutrition Prob Problem N/A Malnutrition Alert Protein-Calorie Malnutrition N/A Is there a minimum of two criteria No selected? Query Text:Check all the applicable criteria. A minimum of two criteria are recommended for diagnosis of either severe or non-severe malnutrition. Intervention/Recommendation Comments 1. Continue with regular diet as ordered. 2. Monitor PO intake, wt, labs and skin integrity 3. F/U as low risk in 7 days, 06/19 Expected Outcomes/Goals Expected Outcomes/Goals 1. PO intake to meet at least 75% of nutritional needs. 2. Wt stability, skin to remain intact, labs to approach WNL.
[2017-06-13] MEDS: Multivitamin Tab PO SCH (09:55)
--- NOTE | 2017-06-13 12:28 | Progress Notes ---
DATE: 06/13/2017 Case was discussed with staff of the patient, reviewed records. The patient is confused, unable to tell me the date. She does not know where she is. She reports that she did not sleep well, with poor appetite. She reports she eats one meal a day. She is able to express herself, but yet she is confused. I asked her where she was living or she was living with her , she said no, but she could not tell me, she said she lives in a house. When I asked her, who lives in the house, she said Darryl. I said who is Darryl? She says her . She is very confused, unable to make safe plan for self-care. She reported the voices are not prominent. She tried to cut both of her wrists. She is still considered a high risk with her behavior. Her lab work showed high MCV at 103.4, high MCH positive 4.5, and high monocytes 11.1. The rest of the CBC within normal range. Chemistry panel show low creatinine level. The rest within normal range. Currently, no side effects with the medication. No sedation. No nausea. I will be increasing the Remeron dose to 30 mg to help with her depression, lack of sleep, poor appetite and so far no side effects with the medication. No sedation, no nausea. No extrapyramidal symptoms. We will continue to work with the patient in group therapy, milieu therapy, and adjust the medication as needed. JOB# [id number]
--- NOTE | 2017-06-13 20:53 | Internal Medicine Prog Note ---
Internal Medicine Subjective - Subjective Service Date: 06/13/17 Patient seen and examined:: with staff (SHE IS DOING BETTER) Patient is:: awake, verbal, in bed, confused Per staff patient has:: no adverse event Internal Medicine Objective - Results Result Diagrams: 06/06/17 06:40 06/06/17 06:40 Recent Labs: Laboratory Last Values WBC 7.1 Th/cmm (4.8-10.8) 06/06/17 06:40 RBC 4.00 Mil/cmm (3.80-5.10) 06/06/17 06:40 Hgb 13.8 gm/dL (12-16) 06/06/17 06:40 Hct 41.3 % (41.0-60) 06/06/17 06:40 MCV 103.4 fl (81-100) H 06/06/17 06:40 MCH 34.5 pg (27.0-31.0) H 06/06/17 06:40 MCHC Differential 33.4 pg (28.0-36.0) 06/06/17 06:40 RDW 11.8 % (11.5-20.0) 06/06/17 06:40 Plt Count 305 Th/cmm (150-400) 06/06/17 06:40 MPV 7.8 fl 06/06/17 06:40 Neutrophils % 51.0 % (40.0-80.0) 06/06/17 06:40 Lymphocytes % 36.9 % (20.0-50.0) 06/06/17 06:40 Monocytes % 11.1 % (2.0-10.0) H 06/06/17 06:40 Eosinophils % 0.6 % (0.0-5.0) 06/06/17 06:40 Basophils % 0.4 % (0.0-2.0) 06/06/17 06:40 Sodium 136 mEq/L (136-145) 06/06/17 06:40 Potassium 3.7 mEq/L (3.5-5.1) 06/06/17 06:40 Chloride 102 mEq/L (98-107) 06/06/17 06:40 Carbon Dioxide 24.5 mEq/L (21.0-31.0) 06/06/17 06:40 Anion Gap 13.2 (7.0-16.0) 06/06/17 06:40 BUN 10 mg/dL (7-25) 06/06/17 06:40 Creatinine 0.5 mg/dL (0.6-1.2) L 06/06/17 06:40 Est GFR ( Amer) > 60.0 ml/min (>90) 06/06/17 06:40 Est GFR (Non-Af Amer) > 60.0 ml/min 06/06/17 06:40 BUN/Creatinine Ratio 20.0 06/06/17 06:40 Glucose 101 mg/dL (70-105) 06/06/17 06:40 POC Glucose 104 MG/DL (70 - 105) 06/04/17 14:34 Calcium 9.6 mg/dL (8.6-10.3) 06/06/17 06:40 Total Bilirubin 0.6 mg/dL (0.3-1.0) 06/06/17 06:40 AST 34 U/L (13-39) 06/06/17 06:40 ALT 28 U/L (7-52) 06/06/17 06:40 Alkaline Phosphatase 60 U/L (34-104) 06/06/17 06:40 Total Protein 7.2 gm/dL (6.0-8.3) 06/06/17 06:40 Albumin 4.4 gm/dL (3.7-5.3) 06/06/17 06:40 Globulin 2.8 gm/dL 06/06/17 06:40 Albumin/Globulin Ratio 1.6 (1.0-1.8) 06/06/17 06:40 - Physical Exam Vitals and I&O: Vital Signs Temp 98 F 06/13/17 19:59 Pulse 90 06/13/17 19:59 Resp 20 06/13/17 19:59 BP 125/66 06/13/17 19:59 Pulse Ox 96 06/13/17 19:59 Intake & Output 06/13/17 06/13/17 06/14/17 06:59 18:59 06:59 Intake Total 420 1200 Balance 420 1200 Intake: Oral 420 1200 Other: # Voids 1 # Bowel Movements 0 1 Active Medications: Current Medications Acetaminophen (Tylenol) 650 mg PO Q4HR PRN PRN Reason: Mild Pain / Temp above 100 Stop: 08/04/17 07:35 Last Admin: 06/06/17 20:39 Dose: 650 mg Al Hydrox/Mg Hydrox/Simethicone (Maalox) 30 ml PO Q4HR PRN PRN Reason: GI DISTRESS Stop: 08/04/17 07:35 Aripiprazole (Abilify) 10 mg PO DAILY ILYA PRN Reason: Protocol Stop: 08/06/17 11:38 Last Admin: 06/13/17 09:55 Dose: 10 mg Lorazepam (Ativan) 0.5 mg PO Q4HR PRN; Protocol PRN Reason: Anxiety Stop: 07/05/17 07:35 Last Admin: 06/13/17 09:55 Dose: 0.5 mg Magnesium Hydroxide (Milk Of Magnesia) 30 ml PO HS PRN PRN Reason: Constipation Mirtazapine (Remeron) 30 mg PO HS ILYA PRN Reason: Protocol Stop: 08/12/17 08:16 Last Admin: 06/13/17 20:44 Dose: 30 mg Multivitamins/Vitamin C (Theragran) 1 tab PO DAILY ILYA Stop: 08/04/17 08:59 Last Admin: 06/13/17 09:55 Dose: 1 tab Mupirocin (Bactroban Oint) 1 appl TP DAILY ILYA Stop: 06/19/17 11:23 Last Admin: 06/12/17 08:51 Dose: 1 appl Zolpidem Tartrate (Ambien) 5 mg PO HS PRN PRN Reason: Insomnia Stop: 08/04/17 07:35 Last Admin: 06/13/17 20:45 Dose: 5 mg General: demented HEENT: NC/AT, PERRLA, EOMI, anicteric sclerae, throat clear Neck: Supple, No JVD, No thyromegaly, +2 carotid pulse wo bruit, No LAD Lungs: CTAB Cardiovascular: RRR, Normal S1, Normal S2, without murmur Abdomen: non-tender, non-distended Extremities: clear Neurological: no change Internal Medicine Assmt/Plan - Assessment Assessment: 1.MULTIPLE SKIN LACERATION OF BOTH FOREARMS. 2.DJD. 3.Copd 4.MAJOR DEPRESSION. - Plan Plan: CONTINUE ON CURRENT MEDICATION AND WOUND CARE. Nutritional Asmnt/Malnutr-PDOC - Dietary Evaluation Malnutrition Findings (Please click <Entered> for more info): Nutritional Asmnt/Malnutrition Start: 06/12/17 16: 32 Text: Status: Complete Freq: Document 06/12/17 16:32 IRVING (Rec: 06/12/17 16:40 PABLO [email or web address]) Nutritional Asmnt/Malnutrition Patient General Information Nutritional Screening Low Risk Diagnosis psychosis Pertinent Medical Hx/Surgical Hx depression, chronic smoking, DJD Subjective Information Pt seen lying in bed at time of viist, awake and alert. Pt reported appetite fine. Per EMR, PO intake 75-100%. Current Diet Order/ Nutrition Support regular Pertinent Medications remeron, theragran Pertinent Labs 06/06 cr 0.5 Nutritional Hx/Data Height 1.57 m Height (Calculated Centimeters) 157.5 Current Weight (lbs) 54.431 kg Weight (Calculated Kilograms) 54.4 Weight (Calculated Grams) 58185.1 [place] Body Weight 110 Body Mass Index (BMI) 21.9 Weight Status Approriate GI Symptoms GI Symptoms None Last BM 06/11 Difficult in: None Skin Integrity/Comment: wounds to both extremities Current %PO Good (75-100%) Estimated Nutritional Goals BEE in Kcals: Using Current wt Calories/Kcals/Kg 25-30 Kcals Calculated 3266-8910 Protein: Using Current wt Protein g/k-1.2 Protein Calculated 55-66 Fluid: ml 1375-1650ml (1ml/kcal) Nutritional Problem No current Nutrition Prob Problem N/A Malnutrition Alert Protein-Calorie Malnutrition N/A Is there a minimum of two criteria No selected? Query Text:Check all the applicable criteria. A minimum of two criteria are recommended for diagnosis of either severe or non-severe malnutrition. Intervention/Recommendation Comments 1. Continue with regular diet as ordered. 2. Monitor PO intake, wt, labs and skin integrity 3. F/U as low risk in 7 days, 06/19 Expected Outcomes/Goals Expected Outcomes/Goals 1. PO intake to meet at least 75% of nutritional needs. 2. Wt stability, skin to remain intact, labs to approach WNL.
[2017-06-14] MEDS: Multivitamin Tab PO SCH (08:09)
--- NOTE | 2017-06-14 21:16 | Progress Notes ---
DATE: 06/14/2017 SUBJECTIVE: Case discussed with staff of the patient, reviewed records. The patient continues to be depressed, overwhelmed. Continue to have episodes of hearing voices. Continues to be unpredictable. In general, she is better, she is out of bed, still confused, unable to tell me the day. She cut both of her forearms and has several cuts. She is still unable to make safe plan for self-care. Working also on discharge plan. No side effects to the medication, no sedation, no nausea, no extrapyramidal symptoms and we will continue to tolerate the increase in Remeron yesterday with no side effects. There have been no other changes in her medications. Still taking the same medication. PLAN: We will continue outpatient group therapy, milieu therapy and adjust medications as needed. JOB# [id number]
--- NOTE | 2017-06-14 22:01 | Internal Medicine Prog Note ---
Internal Medicine Subjective - Subjective Service Date: 06/14/17 Patient seen and examined:: with staff Patient is:: awake, verbal, in bed, confused Per staff patient has:: no adverse event Internal Medicine Objective - Results Result Diagrams: 06/06/17 06:40 06/06/17 06:40 Recent Labs: Laboratory Last Values WBC 7.1 Th/cmm (4.8-10.8) 06/06/17 06:40 RBC 4.00 Mil/cmm (3.80-5.10) 06/06/17 06:40 Hgb 13.8 gm/dL (12-16) 06/06/17 06:40 Hct 41.3 % (41.0-60) 06/06/17 06:40 MCV 103.4 fl (81-100) H 06/06/17 06:40 MCH 34.5 pg (27.0-31.0) H 06/06/17 06:40 MCHC Differential 33.4 pg (28.0-36.0) 06/06/17 06:40 RDW 11.8 % (11.5-20.0) 06/06/17 06:40 Plt Count 305 Th/cmm (150-400) 06/06/17 06:40 MPV 7.8 fl 06/06/17 06:40 Neutrophils % 51.0 % (40.0-80.0) 06/06/17 06:40 Lymphocytes % 36.9 % (20.0-50.0) 06/06/17 06:40 Monocytes % 11.1 % (2.0-10.0) H 06/06/17 06:40 Eosinophils % 0.6 % (0.0-5.0) 06/06/17 06:40 Basophils % 0.4 % (0.0-2.0) 06/06/17 06:40 Sodium 136 mEq/L (136-145) 06/06/17 06:40 Potassium 3.7 mEq/L (3.5-5.1) 06/06/17 06:40 Chloride 102 mEq/L (98-107) 06/06/17 06:40 Carbon Dioxide 24.5 mEq/L (21.0-31.0) 06/06/17 06:40 Anion Gap 13.2 (7.0-16.0) 06/06/17 06:40 BUN 10 mg/dL (7-25) 06/06/17 06:40 Creatinine 0.5 mg/dL (0.6-1.2) L 06/06/17 06:40 Est GFR ( Amer) > 60.0 ml/min (>90) 06/06/17 06:40 Est GFR (Non-Af Amer) > 60.0 ml/min 06/06/17 06:40 BUN/Creatinine Ratio 20.0 06/06/17 06:40 Glucose 101 mg/dL (70-105) 06/06/17 06:40 POC Glucose 104 MG/DL (70 - 105) 06/04/17 14:34 Calcium 9.6 mg/dL (8.6-10.3) 06/06/17 06:40 Total Bilirubin 0.6 mg/dL (0.3-1.0) 06/06/17 06:40 AST 34 U/L (13-39) 06/06/17 06:40 ALT 28 U/L (7-52) 06/06/17 06:40 Alkaline Phosphatase 60 U/L (34-104) 06/06/17 06:40 Total Protein 7.2 gm/dL (6.0-8.3) 06/06/17 06:40 Albumin 4.4 gm/dL (3.7-5.3) 06/06/17 06:40 Globulin 2.8 gm/dL 06/06/17 06:40 Albumin/Globulin Ratio 1.6 (1.0-1.8) 06/06/17 06:40 - Physical Exam Vitals and I&O: Vital Signs Temp 97 F 06/14/17 20:00 Pulse 85 06/14/17 20:00 Resp 19 06/14/17 20:00 BP 126/77 06/14/17 20:00 Pulse Ox 97 06/14/17 20:00 Intake & Output 06/14/17 06/14/17 06/15/17 06:59 18:59 06:59 Intake Total 120 1600 Balance 120 1600 Intake: Oral 120 1600 Other: # Voids 2 4 # Bowel Movements 1 Stool Characteristics Formed Brown Active Medications: Current Medications Acetaminophen (Tylenol) 650 mg PO Q4HR PRN PRN Reason: Mild Pain / Temp above 100 Stop: 08/04/17 07:35 Last Admin: 05/02/18 20:39 Dose: 650 mg Al Hydrox/Mg Hydrox/Simethicone (Maalox) 30 ml PO Q4HR PRN PRN Reason: GI DISTRESS Stop: 08/04/17 07:35 Aripiprazole (Abilify) 10 mg PO DAILY ILYA PRN Reason: Protocol Stop: 08/06/17 11:38 Last Admin: 06/14/17 08:09 Dose: 10 mg Lorazepam (Ativan) 0.5 mg PO Q4HR PRN; Protocol PRN Reason: Anxiety Stop: 07/05/17 07:35 Last Admin: 06/13/17 09:55 Dose: 0.5 mg Magnesium Hydroxide (Milk Of Magnesia) 30 ml PO HS PRN PRN Reason: Constipation Mirtazapine (Remeron) 30 mg PO HS ILYA PRN Reason: Protocol Stop: 08/12/17 08:16 Last Admin: 06/14/17 20:19 Dose: 30 mg Multivitamins/Vitamin C (Theragran) 1 tab PO DAILY ILYA Stop: 08/04/17 08:59 Last Admin: 06/14/17 08:09 Dose: 1 tab Mupirocin (Bactroban Oint) 1 appl TP DAILY ILYA Stop: 06/19/17 11:23 Last Admin: 06/14/17 08:09 Dose: 1 appl Zolpidem Tartrate (Ambien) 5 mg PO HS PRN PRN Reason: Insomnia Stop: 08/04/17 07:35 Last Admin: 06/14/17 20:19 Dose: 5 mg General: demented HEENT: NC/AT, PERRLA, EOMI, anicteric sclerae, throat clear Neck: Supple, No JVD, No thyromegaly, +2 carotid pulse wo bruit, No LAD Lungs: CTAB Cardiovascular: RRR, Normal S1, Normal S2, without murmur Abdomen: non-tender, non-distended Extremities: clear Neurological: no change Internal Medicine Assmt/Plan - Assessment Assessment: 1.MULTIPLE SKIN LACERATION OF BOTH FOREARMS. 2.DJD. 3.Copd 4.MAJOR DEPRESSION. - Plan Plan: CONTINUE ON CURRENT MEDICATION AND WOUND CARE. Nutritional Asmnt/Malnutr-PDOC - Dietary Evaluation Malnutrition Findings (Please click <Entered> for more info): Nutritional Asmnt/Malnutrition Start: 06/12/17 16: 32 Text: Status: Complete Freq: Document 06/12/17 16:32 PABLO (Rec: 06/12/17 16:40 PABLO [email or web address]) Nutritional Asmnt/Malnutrition Patient General Information Nutritional Screening Low Risk Diagnosis psychosis Pertinent Medical Hx/Surgical Hx depression, chronic smoking, DJD Subjective Information Pt seen lying in bed at time of viist, awake and alert. Pt reported appetite fine. Per EMR, PO intake 75-100%. Current Diet Order/ Nutrition Support regular Pertinent Medications remeron, theragran Pertinent Labs / cr 0.5 Nutritional Hx/Data Height 1.57 m Height (Calculated Centimeters) 157.5 Current Weight (lbs) 54.431 kg Weight (Calculated Kilograms) 54.4 Weight (Calculated Grams) 40267.1 [place] Body Weight 110 Body Mass Index (BMI) 21.9 Weight Status Approriate GI Symptoms GI Symptoms None Last BM 06/11 Difficult in: None Skin Integrity/Comment: wounds to both extremities Current %PO Good (75-100%) Estimated Nutritional Goals BEE in Kcals: Using Current wt Calories/Kcals/Kg 25-30 Kcals Calculated 3495-1505 Protein: Using Current wt Protein g/k-1.2 Protein Calculated 55-66 Fluid: ml 1375-1650ml (1ml/kcal) Nutritional Problem No current Nutrition Prob Problem N/A Malnutrition Alert Protein-Calorie Malnutrition N/A Is there a minimum of two criteria No selected? Query Text:Check all the applicable criteria. A minimum of two criteria are recommended for diagnosis of either severe or non-severe malnutrition. Intervention/Recommendation Comments 1. Continue with regular diet as ordered. 2. Monitor PO intake, wt, labs and skin integrity 3. F/U as low risk in 7 days, 06/19 Expected Outcomes/Goals Expected Outcomes/Goals 1. PO intake to meet at least 75% of nutritional needs. 2. Wt stability, skin to remain intact, labs to approach WNL.
[2017-06-15] MEDS: Multivitamin Tab PO SCH (08:20)
--- NOTE | 2017-06-15 19:37 | Internal Medicine Prog Note ---
Internal Medicine Subjective - Subjective Service Date: 06/15/17 Patient seen and examined:: with staff Patient is:: awake, verbal, in bed, confused Per staff patient has:: no adverse event Internal Medicine Objective - Results Result Diagrams: 06/06/17 06:40 06/06/17 06:40 Recent Labs: Laboratory Last Values WBC 7.1 Th/cmm (4.8-10.8) 06/06/17 06:40 RBC 4.00 Mil/cmm (3.80-5.10) 06/06/17 06:40 Hgb 13.8 gm/dL (12-16) 06/06/17 06:40 Hct 41.3 % (41.0-60) 06/06/17 06:40 MCV 103.4 fl (81-100) H 06/06/17 06:40 MCH 34.5 pg (27.0-31.0) H 06/06/17 06:40 MCHC Differential 33.4 pg (28.0-36.0) 06/06/17 06:40 RDW 11.8 % (11.5-20.0) 06/06/17 06:40 Plt Count 305 Th/cmm (150-400) 06/06/17 06:40 MPV 7.8 fl 06/06/17 06:40 Neutrophils % 51.0 % (40.0-80.0) 06/06/17 06:40 Lymphocytes % 36.9 % (20.0-50.0) 06/06/17 06:40 Monocytes % 11.1 % (2.0-10.0) H 06/06/17 06:40 Eosinophils % 0.6 % (0.0-5.0) 06/06/17 06:40 Basophils % 0.4 % (0.0-2.0) 06/06/17 06:40 Sodium 136 mEq/L (136-145) 06/06/17 06:40 Potassium 3.7 mEq/L (3.5-5.1) 06/06/17 06:40 Chloride 102 mEq/L (98-107) 06/06/17 06:40 Carbon Dioxide 24.5 mEq/L (21.0-31.0) 06/06/17 06:40 Anion Gap 13.2 (7.0-16.0) 06/06/17 06:40 BUN 10 mg/dL (7-25) 06/06/17 06:40 Creatinine 0.5 mg/dL (0.6-1.2) L 06/06/17 06:40 Est GFR ( Amer) > 60.0 ml/min (>90) 06/06/17 06:40 Est GFR (Non-Af Amer) > 60.0 ml/min 06/06/17 06:40 BUN/Creatinine Ratio 20.0 06/06/17 06:40 Glucose 101 mg/dL (70-105) 06/06/17 06:40 POC Glucose 104 MG/DL (70 - 105) 06/04/17 14:34 Calcium 9.6 mg/dL (8.6-10.3) 06/06/17 06:40 Total Bilirubin 0.6 mg/dL (0.3-1.0) 06/06/17 06:40 AST 34 U/L (13-39) 06/06/17 06:40 ALT 28 U/L (7-52) 06/06/17 06:40 Alkaline Phosphatase 60 U/L (34-104) 06/06/17 06:40 Total Protein 7.2 gm/dL (6.0-8.3) 06/06/17 06:40 Albumin 4.4 gm/dL (3.7-5.3) 06/06/17 06:40 Globulin 2.8 gm/dL 06/06/17 06:40 Albumin/Globulin Ratio 1.6 (1.0-1.8) 06/06/17 06:40 - Physical Exam Vitals and I&O: Vital Signs Temp 98.0 F 06/15/17 14:00 Pulse 87 06/15/17 14:00 Resp 18 06/15/17 14:00 BP 103/53 06/15/17 14:00 Pulse Ox 96 06/15/17 14:00 Intake & Output 06/15/17 06/15/17 06/16/17 06:59 18:59 06:59 Intake Total 120 1200 Balance 120 1200 Intake: Oral 120 1200 Other: # Voids 3 # Bowel Movements 1 Stool Characteristics Formed Brown Active Medications: Current Medications Acetaminophen (Tylenol) 650 mg PO Q4HR PRN PRN Reason: Mild Pain / Temp above 100 Stop: 08/04/17 07:35 Last Admin: 06/06/17 20:39 Dose: 650 mg Al Hydrox/Mg Hydrox/Simethicone (Maalox) 30 ml PO Q4HR PRN PRN Reason: GI DISTRESS Stop: 08/04/17 07:35 Aripiprazole (Abilify) 10 mg PO DAILY ILYA PRN Reason: Protocol Stop: 08/06/17 11:38 Last Admin: 06/15/17 08:20 Dose: 10 mg Lorazepam (Ativan) 0.5 mg PO Q4HR PRN; Protocol PRN Reason: Anxiety Stop: 07/05/17 07:35 Last Admin: 06/13/17 09:55 Dose: 0.5 mg Magnesium Hydroxide (Milk Of Magnesia) 30 ml PO HS PRN PRN Reason: Constipation Mirtazapine (Remeron) 30 mg PO HS ILYA PRN Reason: Protocol Stop: 08/12/17 08:16 Last Admin: 06/14/17 20:19 Dose: 30 mg Multivitamins/Vitamin C (Theragran) 1 tab PO DAILY ILYA Stop: 08/04/17 08:59 Last Admin: 06/15/17 08:20 Dose: 1 tab Mupirocin (Bactroban Oint) 1 appl TP DAILY ILYA Stop: 06/19/17 11:23 Last Admin: 06/15/17 08:21 Dose: 1 appl Zolpidem Tartrate (Ambien) 5 mg PO HS PRN PRN Reason: Insomnia Stop: 08/04/17 07:35 Last Admin: 06/14/17 20:19 Dose: 5 mg General: demented HEENT: NC/AT, PERRLA, EOMI, anicteric sclerae, throat clear Neck: Supple, No JVD, No thyromegaly, +2 carotid pulse wo bruit, No LAD Lungs: CTAB Cardiovascular: RRR, Normal S1, Normal S2, without murmur Abdomen: non-tender, non-distended Extremities: clear Neurological: no change Internal Medicine Assmt/Plan - Assessment Assessment: 1.MULTIPLE SKIN LACERATION OF BOTH FOREARMS.HEALING. 2.DJD. 3.Copd 4.MAJOR DEPRESSION. - Plan Plan: CONTINUE ON CURRENT MEDICATION AND WOUND CARE. Nutritional Asmnt/Malnutr-PDOC - Dietary Evaluation Malnutrition Findings (Please click <Entered> for more info): Nutritional Asmnt/Malnutrition Start: 06/12/17 16: 32 Text: Status: Complete Freq: Document 06/12/17 16:32 [email or web address] (Rec: 06/12/17 16:40 PABLO [email or web address]) Nutritional Asmnt/Malnutrition Patient General Information Nutritional Screening Low Risk Diagnosis psychosis Pertinent Medical Hx/Surgical Hx depression, chronic smoking, DJD Subjective Information Pt seen lying in bed at time of viist, awake and alert. Pt reported appetite fine. Per EMR, PO intake 75-100%. Current Diet Order/ Nutrition Support regular Pertinent Medications remeron, theragran Pertinent Labs 06/06 cr 0.5 Nutritional Hx/Data Height 1.57 m Height (Calculated Centimeters) 157.5 Current Weight (lbs) 54.431 kg Weight (Calculated Kilograms) 54.4 Weight (Calculated Grams) 60312.1 [place] Body Weight 110 Body Mass Index (BMI) 21.9 Weight Status Approriate GI Symptoms GI Symptoms None Last BM 06/11 Difficult in: None Skin Integrity/Comment: wounds to both extremities Current %PO Good (75-100%) Estimated Nutritional Goals BEE in Kcals: Using Current wt Calories/Kcals/Kg 25-30 Kcals Calculated 4514-6501 Protein: Using Current wt Protein g/k-1.2 Protein Calculated 55-66 Fluid: ml 1375-1650ml (1ml/kcal) Nutritional Problem No current Nutrition Prob Problem N/A Malnutrition Alert Protein-Calorie Malnutrition N/A Is there a minimum of two criteria No selected? Query Text:Check all the applicable criteria. A minimum of two criteria are recommended for diagnosis of either severe or non-severe malnutrition. Intervention/Recommendation Comments 1. Continue with regular diet as ordered. 2. Monitor PO intake, wt, labs and skin integrity 3. F/U as low risk in 7 days, 06/19 Expected Outcomes/Goals Expected Outcomes/Goals 1. PO intake to meet at least 75% of nutritional needs. 2. Wt stability, skin to remain intact, labs to approach WNL.
--- NOTE | 2017-06-15 23:47 | Progress Notes ---
DATE: 06/15/2017 Case was discussed with staff of the patient, reviewed records. The patient continues to be depressed and overwhelmed, continues to be irritable, continues to hear voices at times; however, in general she is a bit better. She is able to go to the dining room and be around people. She is able to contract for safety. She has been sleeping better. She continues to hear voices at times, but they are not as prominent. She has been compliant with the medication with no side effects, no sedation, no nausea, and no extrapyramidal symptoms. Also, working on discharge plan. She is still very confused and unable to state a plan for self-care. We will continue to work with the patient in group therapy, milieu therapy, and adjust the medications as needed. JOB# [id number]
[2017-06-16] MEDS: Multivitamin Tab PO SCH (10:00)
--- NOTE | 2017-06-16 17:17 | General Progress Note ---
Subjective - Review of Systems Service Date: 06/16/17 Subjective: awake and alert cooperative no distress Objective - Results Result Diagrams: 06/06/17 06:40 06/06/17 06:40 Recent Labs: Laboratory Last Values WBC 7.1 Th/cmm (4.8-10.8) 06/06/17 06:40 RBC 4.00 Mil/cmm (3.80-5.10) 06/06/17 06:40 Hgb 13.8 gm/dL (12-16) 06/06/17 06:40 Hct 41.3 % (41.0-60) 06/06/17 06:40 MCV 103.4 fl (81-100) H 06/06/17 06:40 MCH 34.5 pg (27.0-31.0) H 06/06/17 06:40 MCHC Differential 33.4 pg (28.0-36.0) 06/06/17 06:40 RDW 11.8 % (11.5-20.0) 06/06/17 06:40 Plt Count 305 Th/cmm (150-400) 06/06/17 06:40 MPV 7.8 fl 06/06/17 06:40 Neutrophils % 51.0 % (40.0-80.0) 06/06/17 06:40 Lymphocytes % 36.9 % (20.0-50.0) 06/06/17 06:40 Monocytes % 11.1 % (2.0-10.0) H 06/06/17 06:40 Eosinophils % 0.6 % (0.0-5.0) 06/06/17 06:40 Basophils % 0.4 % (0.0-2.0) 06/06/17 06:40 Sodium 136 mEq/L (136-145) 06/06/17 06:40 Potassium 3.7 mEq/L (3.5-5.1) 06/06/17 06:40 Chloride 102 mEq/L (98-107) 06/06/17 06:40 Carbon Dioxide 24.5 mEq/L (21.0-31.0) 06/06/17 06:40 Anion Gap 13.2 (7.0-16.0) 06/06/17 06:40 BUN 10 mg/dL (7-25) 06/06/17 06:40 Creatinine 0.5 mg/dL (0.6-1.2) L 06/06/17 06:40 Est GFR ( Amer) > 60.0 ml/min (>90) 06/06/17 06:40 Est GFR (Non-Af Amer) > 60.0 ml/min 06/06/17 06:40 BUN/Creatinine Ratio 20.0 06/06/17 06:40 Glucose 101 mg/dL (70-105) 06/06/17 06:40 POC Glucose 104 MG/DL (70 - 105) 06/04/17 14:34 Calcium 9.6 mg/dL (8.6-10.3) 06/06/17 06:40 Total Bilirubin 0.6 mg/dL (0.3-1.0) 06/06/17 06:40 AST 34 U/L (13-39) 06/06/17 06:40 ALT 28 U/L (7-52) 06/06/17 06:40 Alkaline Phosphatase 60 U/L (34-104) 06/06/17 06:40 Total Protein 7.2 gm/dL (6.0-8.3) 06/06/17 06:40 Albumin 4.4 gm/dL (3.7-5.3) 06/06/17 06:40 Globulin 2.8 gm/dL 06/06/17 06:40 Albumin/Globulin Ratio 1.6 (1.0-1.8) 06/06/17 06:40 - Physical Exam Vitals and I&O: Vital Signs Temp 97.0 F 06/16/17 14:00 Pulse 77 06/16/17 14:00 Resp 201 06/16/17 14:00 BP 102/69 06/16/17 14:00 Pulse Ox 95 06/16/17 14:00 Intake & Output 06/15/17 06/16/17 06/16/17 18:59 06:59 18:59 Intake Total 3823 157 7197 Balance 5135 540 8825 Intake: Oral 6551 755 2590 Other: # Voids 2 3 # Bowel Movements 1 1 Stool Characteristics Formed Brown Active Medications: Current Medications Acetaminophen (Tylenol) 650 mg PO Q4HR PRN PRN Reason: Mild Pain / Temp above 100 Stop: 08/04/17 07:35 Last Admin: 06/06/17 20:39 Dose: 650 mg Al Hydrox/Mg Hydrox/Simethicone (Maalox) 30 ml PO Q4HR PRN PRN Reason: GI DISTRESS Stop: 08/04/17 07:35 Aripiprazole (Abilify) 10 mg PO DAILY ILYA PRN Reason: Protocol Stop: 08/06/17 11:38 Last Admin: 06/16/17 10:00 Dose: 10 mg Lorazepam (Ativan) 0.5 mg PO Q4HR PRN; Protocol PRN Reason: Anxiety Stop: 07/05/17 07:35 Last Admin: 06/13/17 09:55 Dose: 0.5 mg Magnesium Hydroxide (Milk Of Magnesia) 30 ml PO HS PRN PRN Reason: Constipation Mirtazapine (Remeron) 30 mg PO HS ILYA PRN Reason: Protocol Stop: 08/12/17 08:16 Last Admin: 06/15/17 20:42 Dose: 30 mg Multivitamins/Vitamin C (Theragran) 1 tab PO DAILY ILYA Stop: 08/04/17 08:59 Last Admin: 06/16/17 10:00 Dose: Not Given Mupirocin (Bactroban Oint) 1 appl TP DAILY ILYA Stop: 06/19/17 11:23 Last Admin: 06/16/17 10:00 Dose: Not Given Zolpidem Tartrate (Ambien) 5 mg PO HS PRN PRN Reason: Insomnia Stop: 08/04/17 07:35 Last Admin: 06/14/17 20:19 Dose: 5 mg General: No acute distress HEENT: PERRLA, EOMI Neck: Supple, JVD, Thyromegaly Cardiovascular: Regular rate, Normal S1, Normal S2 Lungs: Clear to auscultation Abdomen: Bowel sounds, Soft Assessment/Plan - Assessment Assessment: 1.MULTIPLE SKIN LACERATION OF BOTH FOREARMS.HEALING. 2.DJD. 3.Copd 4.MAJOR DEPRESSION. - Plan Plan: cont current treatment Nutritional Asmnt/Malnutr-PDOC - Dietary Evaluation Malnutrition Findings (Please click <Entered> for more info): Nutritional Asmnt/Malnutrition Start: 06/12/17 16: 32 Text: Status: Complete Freq: Document 06/12/17 16:32 PABLO (Rec: 06/12/17 16:40 PABLO [facility]) Nutritional Asmnt/Malnutrition Patient General Information Nutritional Screening Low Risk Diagnosis psychosis Pertinent Medical Hx/Surgical Hx depression, chronic smoking, DJD Subjective Information Pt seen lying in bed at time of viist, awake and alert. Pt reported appetite fine. Per EMR, PO intake 75-100%. Current Diet Order/ Nutrition Support regular Pertinent Medications remeron, theragran Pertinent Labs 5/ cr 0.5 Nutritional Hx/Data Height 1.57 m Height (Calculated Centimeters) 157.5 Current Weight (lbs) 54.431 kg Weight (Calculated Kilograms) 54.4 Weight (Calculated Grams) 53808.1 [place] Body Weight 110 Body Mass Index (BMI) 21.9 Weight Status Approriate GI Symptoms GI Symptoms None Last BM 06/11 Difficult in: None Skin Integrity/Comment: wounds to both extremities Current %PO Good (75-100%) Estimated Nutritional Goals BEE in Kcals: Using Current wt Calories/Kcals/Kg 25-30 Kcals Calculated 2625-5669 Protein: Using Current wt Protein g/k-1.2 Protein Calculated 55-66 Fluid: ml 1375-1650ml (1ml/kcal) Nutritional Problem No current Nutrition Prob Problem N/A Malnutrition Alert Protein-Calorie Malnutrition N/A Is there a minimum of two criteria No selected? Query Text:Check all the applicable criteria. A minimum of two criteria are recommended for diagnosis of either severe or non-severe malnutrition. Intervention/Recommendation Comments 1. Continue with regular diet as ordered. 2. Monitor PO intake, wt, labs and skin integrity 3. F/U as low risk in 7 days, 06/19 Expected Outcomes/Goals Expected Outcomes/Goals 1. PO intake to meet at least 75% of nutritional needs. 2. Wt stability, skin to remain intact, labs to approach WNL.
--- NOTE | 2017-06-16 21:35 | Progress Notes ---
DATE: 06/16/2017 SUBJECTIVE: The patient was seen and evaluated. The patient's chart reviewed. Covering for Dr. Shaikh. The patient is a 57-year-old female who was admitted here initially on a hold. The patient had cut both of her wrists. She attempted to hurt herself. She is currently on Abilify 10 mg a day, Ativan as needed, mirtazapine 30 mg at nighttime. Today on [id number] evaluation, always have been sad, melancholic, withdrawn, disengaged. MENTAL STATUS EXAMINATION: Withdrawn, disengaged, minimizing the events leading up to her suicide attempt. ASSESSMENT AND PLAN: The patient is distraught, overwhelmed, status post severe suicide attempt, will continue with the current medication regimen as Remeron was recently increased to target the patient's severe depression. JOB# [id number]
[2017-06-17] MEDS: Multivitamin Tab PO SCH (09:21)
--- NOTE | 2017-06-17 18:57 | General Progress Note ---
Subjective - Review of Systems Service Date: 06/17/17 Subjective: awake and alert cooperative no distress Objective - Results Result Diagrams: 06/06/17 06:40 06/06/17 06:40 Recent Labs: Laboratory Last Values WBC 7.1 Th/cmm (4.8-10.8) 06/06/17 06:40 RBC 4.00 Mil/cmm (3.80-5.10) 06/06/17 06:40 Hgb 13.8 gm/dL (12-16) 06/06/17 06:40 Hct 41.3 % (41.0-60) 06/06/17 06:40 MCV 103.4 fl (81-100) H 06/06/17 06:40 MCH 34.5 pg (27.0-31.0) H 06/06/17 06:40 MCHC Differential 33.4 pg (28.0-36.0) 06/06/17 06:40 RDW 11.8 % (11.5-20.0) 06/06/17 06:40 Plt Count 305 Th/cmm (150-400) 06/06/17 06:40 MPV 7.8 fl 06/06/17 06:40 Neutrophils % 51.0 % (40.0-80.0) 06/06/17 06:40 Lymphocytes % 36.9 % (20.0-50.0) 06/06/17 06:40 Monocytes % 11.1 % (2.0-10.0) H 06/06/17 06:40 Eosinophils % 0.6 % (0.0-5.0) 06/06/17 06:40 Basophils % 0.4 % (0.0-2.0) 06/06/17 06:40 Sodium 136 mEq/L (136-145) 06/06/17 06:40 Potassium 3.7 mEq/L (3.5-5.1) 06/06/17 06:40 Chloride 102 mEq/L (98-107) 06/06/17 06:40 Carbon Dioxide 24.5 mEq/L (21.0-31.0) 06/06/17 06:40 Anion Gap 13.2 (7.0-16.0) 06/06/17 06:40 BUN 10 mg/dL (7-25) 06/06/17 06:40 Creatinine 0.5 mg/dL (0.6-1.2) L 06/06/17 06:40 Est GFR ( Amer) > 60.0 ml/min (>90) 06/06/17 06:40 Est GFR (Non-Af Amer) > 60.0 ml/min 06/06/17 06:40 BUN/Creatinine Ratio 20.0 06/06/17 06:40 Glucose 101 mg/dL (70-105) 06/06/17 06:40 POC Glucose 104 MG/DL (70 - 105) 06/04/17 14:34 Calcium 9.6 mg/dL (8.6-10.3) 06/06/17 06:40 Total Bilirubin 0.6 mg/dL (0.3-1.0) 06/06/17 06:40 AST 34 U/L (13-39) 06/06/17 06:40 ALT 28 U/L (7-52) 06/06/17 06:40 Alkaline Phosphatase 60 U/L (34-104) 06/06/17 06:40 Total Protein 7.2 gm/dL (6.0-8.3) 06/06/17 06:40 Albumin 4.4 gm/dL (3.7-5.3) 06/06/17 06:40 Globulin 2.8 gm/dL 06/06/17 06:40 Albumin/Globulin Ratio 1.6 (1.0-1.8) 06/06/17 06:40 - Physical Exam Vitals and I&O: Vital Signs Temp 97.5 F 06/17/17 16:11 Pulse 84 06/17/17 16:11 Resp 20 06/17/17 16:11 BP 124/69 06/17/17 16:11 Pulse Ox 96 06/17/17 16:11 Intake & Output 06/16/17 06/17/17 06/17/17 18:59 06:59 18:59 Intake Total 7235 649 9043 Balance 7966 752 5181 Intake: Oral 4606 826 2993 Other: # Voids 3 1 3 # Bowel Movements 1 1 Active Medications: Current Medications Acetaminophen (Tylenol) 650 mg PO Q4HR PRN PRN Reason: Mild Pain / Temp above 100 Stop: 08/04/17 07:35 Last Admin: 06/06/17 20:39 Dose: 650 mg Al Hydrox/Mg Hydrox/Simethicone (Maalox) 30 ml PO Q4HR PRN PRN Reason: GI DISTRESS Stop: 08/04/17 07:35 Last Admin: 06/17/17 14:40 Dose: 30 ml Aripiprazole (Abilify) 10 mg PO DAILY ILYA PRN Reason: Protocol Stop: 08/06/17 11:38 Last Admin: 06/17/17 09:21 Dose: 10 mg Bisacodyl (Dulcolax 5 Mg Ec Tab) 10 mg PO X1 ONE Stop: 06/17/17 18:53 Famotidine (Pepcid) 20 mg PO DAILY ILYA Stop: 08/16/17 18:59 Lorazepam (Ativan) 0.5 mg PO Q4HR PRN; Protocol PRN Reason: Anxiety Stop: 07/05/17 07:35 Last Admin: 06/13/17 09:55 Dose: 0.5 mg Mirtazapine (Remeron) 30 mg PO HS ILYA PRN Reason: Protocol Stop: 08/12/17 08:16 Last Admin: 06/16/17 20:45 Dose: 30 mg Multivitamins/Vitamin C (Theragran) 1 tab PO DAILY ILYA Stop: 08/04/17 08:59 Last Admin: 06/17/17 09:21 Dose: 1 tab Mupirocin (Bactroban Oint) 1 appl TP DAILY ILYA Stop: 06/19/17 11:23 Last Admin: 06/17/17 09:21 Dose: Not Given Zolpidem Tartrate (Ambien) 5 mg PO HS PRN PRN Reason: Insomnia Stop: 08/04/17 07:35 Last Admin: 06/14/17 20:19 Dose: 5 mg General: No acute distress HEENT: PERRLA, EOMI Neck: Supple, JVD, Thyromegaly Cardiovascular: Regular rate, Normal S1, Normal S2 Lungs: Clear to auscultation Abdomen: Bowel sounds, Soft Assessment/Plan - Assessment Assessment: 1.MULTIPLE SKIN LACERATION OF BOTH FOREARMS.HEALING. 2.DJD. 3.Copd 4.MAJOR DEPRESSION. - Plan Plan: cont current treatment Nutritional Asmnt/Malnutr-PDOC - Dietary Evaluation Malnutrition Findings (Please click <Entered> for more info): Nutritional Asmnt/Malnutrition Start: 06/12/17 16: 32 Text: Status: Complete Freq: Document 06/12/17 16:32 LCHENG (Rec: 06/12/17 16:40 LCHENG [email or web address]) Nutritional Asmnt/Malnutrition Patient General Information Nutritional Screening Low Risk Diagnosis psychosis Pertinent Medical Hx/Surgical Hx depression, chronic smoking, DJD Subjective Information Pt seen lying in bed at time of viist, awake and alert. Pt reported appetite fine. Per EMR, PO intake 75-100%. Current Diet Order/ Nutrition Support regular Pertinent Medications remeron, theragran Pertinent Labs 5/2 cr 0.5 Nutritional Hx/Data Height 1.57 m Height (Calculated Centimeters) 157.5 Current Weight (lbs) 54.431 kg Weight (Calculated Kilograms) 54.4 Weight (Calculated Grams) 62694.1 [place] Body Weight 110 Body Mass Index (BMI) 21.9 Weight Status Approriate GI Symptoms GI Symptoms None Last BM 06/11 Difficult in: None Skin Integrity/Comment: wounds to both extremities Current %PO Good (75-100%) Estimated Nutritional Goals BEE in Kcals: Using Current wt Calories/Kcals/Kg 25-30 Kcals Calculated 4246-6993 Protein: Using Current wt Protein g/k-1.2 Protein Calculated 55-66 Fluid: ml 1375-1650ml (1ml/kcal) Nutritional Problem No current Nutrition Prob Problem N/A Malnutrition Alert Protein-Calorie Malnutrition N/A Is there a minimum of two criteria No selected? Query Text:Check all the applicable criteria. A minimum of two criteria are recommended for diagnosis of either severe or non-severe malnutrition. Intervention/Recommendation Comments 1. Continue with regular diet as ordered. 2. Monitor PO intake, wt, labs and skin integrity 3. F/U as low risk in 7 days, 06/19 Expected Outcomes/Goals Expected Outcomes/Goals 1. PO intake to meet at least 75% of nutritional needs. 2. Wt stability, skin to remain intact, labs to approach WNL.
--- NOTE | 2017-06-18 03:13 | Progress Notes ---
DATE: The patient was seen, chart reviewed and discussed with staff. The patient is status post suicide attempt where she cut both of her wrists. She continues to be very withdrawn, refusing to answer any questions during interview. According to staff, she has been compliant with her medications. Appetite and sleep have been stable. Denies any undue side effects. PLAN: The patient is here status post suicide attempt, shows very poor insight, so that she will require inpatient care center treatment. We will monitor on daily basis response to treatment and titrate meds as needed. JOB# [id number]
[2017-06-18] MEDS: Multivitamin Tab PO SCH (09:17)
--- NOTE | 2017-06-18 22:21 | Internal Medicine Prog Note ---
Internal Medicine Subjective - Subjective Service Date: 06/18/17 Patient seen and examined:: without staff Patient is:: awake, verbal, in bed, confused Per staff patient has:: no adverse event Internal Medicine Objective - Results Result Diagrams: 06/06/17 06:40 06/06/17 06:40 Recent Labs: Laboratory Last Values WBC 7.1 Th/cmm (4.8-10.8) 06/06/17 06:40 RBC 4.00 Mil/cmm (3.80-5.10) 06/06/17 06:40 Hgb 13.8 gm/dL (12-16) 06/06/17 06:40 Hct 41.3 % (41.0-60) 06/06/17 06:40 MCV 103.4 fl (81-100) H 06/06/17 06:40 MCH 34.5 pg (27.0-31.0) H 06/06/17 06:40 MCHC Differential 33.4 pg (28.0-36.0) 06/06/17 06:40 RDW 11.8 % (11.5-20.0) 06/06/17 06:40 Plt Count 305 Th/cmm (150-400) 06/06/17 06:40 MPV 7.8 fl 06/06/17 06:40 Neutrophils % 51.0 % (40.0-80.0) 06/06/17 06:40 Lymphocytes % 36.9 % (20.0-50.0) 06/06/17 06:40 Monocytes % 11.1 % (2.0-10.0) H 06/06/17 06:40 Eosinophils % 0.6 % (0.0-5.0) 06/06/17 06:40 Basophils % 0.4 % (0.0-2.0) 06/06/17 06:40 Sodium 136 mEq/L (136-145) 06/06/17 06:40 Potassium 3.7 mEq/L (3.5-5.1) 06/06/17 06:40 Chloride 102 mEq/L (98-107) 06/06/17 06:40 Carbon Dioxide 24.5 mEq/L (21.0-31.0) 06/06/17 06:40 Anion Gap 13.2 (7.0-16.0) 06/06/17 06:40 BUN 10 mg/dL (7-25) 06/06/17 06:40 Creatinine 0.5 mg/dL (0.6-1.2) L 06/06/17 06:40 Est GFR ( Amer) > 60.0 ml/min (>90) 06/06/17 06:40 Est GFR (Non-Af Amer) > 60.0 ml/min 06/06/17 06:40 BUN/Creatinine Ratio 20.0 06/06/17 06:40 Glucose 101 mg/dL (70-105) 06/06/17 06:40 POC Glucose 104 MG/DL (70 - 105) 06/04/17 14:34 Calcium 9.6 mg/dL (8.6-10.3) 06/06/17 06:40 Total Bilirubin 0.6 mg/dL (0.3-1.0) 06/06/17 06:40 AST 34 U/L (13-39) 06/06/17 06:40 ALT 28 U/L (7-52) 06/06/17 06:40 Alkaline Phosphatase 60 U/L (34-104) 06/06/17 06:40 Total Protein 7.2 gm/dL (6.0-8.3) 06/06/17 06:40 Albumin 4.4 gm/dL (3.7-5.3) 06/06/17 06:40 Globulin 2.8 gm/dL 06/06/17 06:40 Albumin/Globulin Ratio 1.6 (1.0-1.8) 06/06/17 06:40 - Physical Exam Vitals and I&O: Vital Signs Temp 98.2 F 06/18/17 20:03 Pulse 101 06/18/17 20:03 Resp 20 06/18/17 20:03 BP 103/64 06/18/17 20:03 Pulse Ox 96 06/18/17 20:03 Intake & Output 06/18/17 06/18/17 06/19/17 06:59 18:59 06:59 Intake Total 420 1000 240 Balance 420 1000 240 Intake: Oral 420 1000 240 Other: # Voids 2 4 2 # Bowel Movements 0 1 Active Medications: Current Medications Acetaminophen (Tylenol) 650 mg PO Q4HR PRN PRN Reason: Mild Pain / Temp above 100 Stop: 08/04/17 07:35 Last Admin: 06/06/17 20:39 Dose: 650 mg Al Hydrox/Mg Hydrox/Simethicone (Maalox) 30 ml PO Q4HR PRN PRN Reason: GI DISTRESS Stop: 08/04/17 07:35 Last Admin: 06/17/17 14:40 Dose: 30 ml Aripiprazole (Abilify) 10 mg PO DAILY ILYA PRN Reason: Protocol Stop: 08/06/17 11:38 Last Admin: 06/18/17 09:17 Dose: 10 mg Famotidine (Pepcid) 20 mg PO DAILY ILYA Stop: 08/16/17 18:59 Last Admin: 06/18/17 09:17 Dose: 20 mg Lorazepam (Ativan) 0.5 mg PO Q4HR PRN; Protocol PRN Reason: Anxiety Stop: 07/05/17 07:35 Last Admin: 06/13/17 09:55 Dose: 0.5 mg Mirtazapine (Remeron) 30 mg PO HS ILYA PRN Reason: Protocol Stop: 08/12/17 08:16 Last Admin: 06/18/17 20:53 Dose: 30 mg Multivitamins/Vitamin C (Theragran) 1 tab PO DAILY ILYA Stop: 08/04/17 08:59 Last Admin: 06/18/17 09:17 Dose: 1 tab Mupirocin (Bactroban Oint) 1 appl TP DAILY ILYA Stop: 06/19/17 11:23 Last Admin: 06/18/17 09:18 Dose: Not Given Zolpidem Tartrate (Ambien) 5 mg PO HS PRN PRN Reason: Insomnia Stop: 08/04/17 07:35 Last Admin: 06/18/17 20:53 Dose: 5 mg General: demented HEENT: NC/AT, PERRLA, EOMI, anicteric sclerae, throat clear Neck: Supple, No JVD, No thyromegaly, +2 carotid pulse wo bruit, No LAD Lungs: CTAB Cardiovascular: RRR, Normal S1, Normal S2, without murmur Abdomen: non-tender, non-distended Extremities: clear Neurological: no change Internal Medicine Assmt/Plan - Assessment Assessment: 1.MULTIPLE SKIN LACERATION OF BOTH FOREARMS.HEALING. 2.DJD. 3.Copd 4.MAJOR DEPRESSION. - Plan Plan: CONTINUE ON CURRENT MEDICATION AND WOUND CARE. Nutritional Asmnt/Malnutr-PDOC - Dietary Evaluation Malnutrition Findings (Please click <Entered> for more info): Nutritional Asmnt/Malnutrition Start: 06/12/17 16: 32 Text: Status: Complete Freq: Document 06/12/17 16:32 PABLO (Rec: 06/12/17 16:40 [email or web address]) Nutritional Asmnt/Malnutrition Patient General Information Nutritional Screening Low Risk Diagnosis psychosis Pertinent Medical Hx/Surgical Hx depression, chronic smoking, DJD Subjective Information Pt seen lying in bed at time of viist, awake and alert. Pt reported appetite fine. Per EMR, PO intake 75-100%. Current Diet Order/ Nutrition Support regular Pertinent Medications remeron, theragran Pertinent Labs / cr 0.5 Nutritional Hx/Data Height 1.57 m Height (Calculated Centimeters) 157.5 Current Weight (lbs) 54.431 kg Weight (Calculated Kilograms) 54.4 Weight (Calculated Grams) 23331.1 [place] Body Weight 110 Body Mass Index (BMI) 21.9 Weight Status Approriate GI Symptoms GI Symptoms None Last BM 06/11 Difficult in: None Skin Integrity/Comment: wounds to both extremities Current %PO Good (75-100%) Estimated Nutritional Goals BEE in Kcals: Using Current wt Calories/Kcals/Kg 25-30 Kcals Calculated 5174-5807 Protein: Using Current wt Protein g/k-1.2 Protein Calculated 55-66 Fluid: ml 1375-1650ml (1ml/kcal) Nutritional Problem No current Nutrition Prob Problem N/A Malnutrition Alert Protein-Calorie Malnutrition N/A Is there a minimum of two criteria No selected? Query Text:Check all the applicable criteria. A minimum of two criteria are recommended for diagnosis of either severe or non-severe malnutrition. Intervention/Recommendation Comments 1. Continue with regular diet as ordered. 2. Monitor PO intake, wt, labs and skin integrity 3. F/U as low risk in 7 days, 06/19 Expected Outcomes/Goals Expected Outcomes/Goals 1. PO intake to meet at least 75% of nutritional needs. 2. Wt stability, skin to remain intact, labs to approach WNL.
--- NOTE | 2017-06-18 23:29 | Progress Notes ---
DATE: 06/18/2017 SUBJECTIVE: Case was discussed with staff of the patient, reviewed records. The patient seems to be a little bit more animated. She is able to walk. She is able to talk more appropriately. The hallucinations are not as prominent. Sleeping better, able to feed herself. She is minimizing her suicide attempt. She has multiple severe lacerations to both of her arms longitudinal. Continues to have poor insight. Working on placement for this patient. No side effects with the medication, no sedation, no nausea, no extrapyramidal symptoms. She reports the hallucinations are slowing down and we will continue to work with the patient in group therapy, milieu therapy and adjust the medications as needed. JOB# [id number]
[2017-06-19] MEDS: Multivitamin Tab PO SCH (10:26)
--- NOTE | 2017-06-19 10:51 | Internal Medicine Prog Note ---
Internal Medicine Subjective - Subjective Service Date: 06/19/17 Patient seen and examined:: with staff (she is doing better) Patient is:: awake, verbal, in bed, confused Per staff patient has:: no adverse event Internal Medicine Objective - Results Result Diagrams: 06/06/17 06:40 06/06/17 06:40 Recent Labs: Laboratory Last Values WBC 7.1 Th/cmm (4.8-10.8) 06/06/17 06:40 RBC 4.00 Mil/cmm (3.80-5.10) 06/06/17 06:40 Hgb 13.8 gm/dL (12-16) 06/06/17 06:40 Hct 41.3 % (41.0-60) 06/06/17 06:40 MCV 103.4 fl (81-100) H 06/06/17 06:40 MCH 34.5 pg (27.0-31.0) H 06/06/17 06:40 MCHC Differential 33.4 pg (28.0-36.0) 06/06/17 06:40 RDW 11.8 % (11.5-20.0) 06/06/17 06:40 Plt Count 305 Th/cmm (150-400) 06/06/17 06:40 MPV 7.8 fl 06/06/17 06:40 Neutrophils % 51.0 % (40.0-80.0) 06/06/17 06:40 Lymphocytes % 36.9 % (20.0-50.0) 06/06/17 06:40 Monocytes % 11.1 % (2.0-10.0) H 06/06/17 06:40 Eosinophils % 0.6 % (0.0-5.0) 06/06/17 06:40 Basophils % 0.4 % (0.0-2.0) 06/06/17 06:40 Sodium 136 mEq/L (136-145) 06/06/17 06:40 Potassium 3.7 mEq/L (3.5-5.1) 06/06/17 06:40 Chloride 102 mEq/L (98-107) 06/06/17 06:40 Carbon Dioxide 24.5 mEq/L (21.0-31.0) 06/06/17 06:40 Anion Gap 13.2 (7.0-16.0) 06/06/17 06:40 BUN 10 mg/dL (7-25) 06/06/17 06:40 Creatinine 0.5 mg/dL (0.6-1.2) L 06/06/17 06:40 Est GFR ( Amer) > 60.0 ml/min (>90) 06/06/17 06:40 Est GFR (Non-Af Amer) > 60.0 ml/min 06/06/17 06:40 BUN/Creatinine Ratio 20.0 06/06/17 06:40 Glucose 101 mg/dL (70-105) 06/06/17 06:40 POC Glucose 104 MG/DL (70 - 105) 06/04/17 14:34 Calcium 9.6 mg/dL (8.6-10.3) 06/06/17 06:40 Total Bilirubin 0.6 mg/dL (0.3-1.0) 06/06/17 06:40 AST 34 U/L (13-39) 06/06/17 06:40 ALT 28 U/L (7-52) 06/06/17 06:40 Alkaline Phosphatase 60 U/L (34-104) 06/06/17 06:40 Total Protein 7.2 gm/dL (6.0-8.3) 06/06/17 06:40 Albumin 4.4 gm/dL (3.7-5.3) 06/06/17 06:40 Globulin 2.8 gm/dL 06/06/17 06:40 Albumin/Globulin Ratio 1.6 (1.0-1.8) 06/06/17 06:40 - Physical Exam Vitals and I&O: Vital Signs Temp 97.9 F 06/19/17 06:19 Pulse 85 06/19/17 06:19 Resp 20 06/19/17 06:19 BP 105/70 06/19/17 06:19 Pulse Ox 95 06/19/17 06:19 Intake & Output 06/18/17 06/19/17 06/19/17 18:59 06:59 18:59 Intake Total 1000 480 Balance 1000 480 Intake: Oral 1000 480 Other: # Voids 4 2 # Bowel Movements 1 Active Medications: Current Medications Acetaminophen (Tylenol) 650 mg PO Q4HR PRN PRN Reason: Mild Pain / Temp above 100 Stop: 08/04/17 07:35 Last Admin: 06/06/17 20:39 Dose: 650 mg Al Hydrox/Mg Hydrox/Simethicone (Maalox) 30 ml PO Q4HR PRN PRN Reason: GI DISTRESS Stop: 08/04/17 07:35 Last Admin: 06/17/17 14:40 Dose: 30 ml Aripiprazole (Abilify) 10 mg PO DAILY ILYA PRN Reason: Protocol Stop: 08/06/17 11:38 Last Admin: 06/19/17 10:21 Dose: 10 mg Famotidine (Pepcid) 20 mg PO DAILY ILYA Stop: 08/16/17 18:59 Last Admin: 06/19/17 10:26 Dose: Not Given Lorazepam (Ativan) 0.5 mg PO Q4HR PRN; Protocol PRN Reason: Anxiety Stop: 07/05/17 07:35 Last Admin: 06/19/17 10:25 Dose: 0.5 mg Mirtazapine (Remeron) 30 mg PO HS ILYA PRN Reason: Protocol Stop: 08/12/17 08:16 Last Admin: 06/18/17 20:53 Dose: 30 mg Multivitamins/Vitamin C (Theragran) 1 tab PO DAILY ILYA Stop: 08/04/17 08:59 Last Admin: 06/19/17 10:26 Dose: Not Given Mupirocin (Bactroban Oint) 1 appl TP DAILY [facility] Stop: 06/19/17 11:23 Last Admin: 06/19/17 10:26 Dose: Not Given Zolpidem Tartrate (Ambien) 5 mg PO HS PRN PRN Reason: Insomnia Stop: 08/04/17 07:35 Last Admin: 06/18/17 20:53 Dose: 5 mg General: demented HEENT: NC/AT, PERRLA, EOMI, anicteric sclerae, throat clear Neck: Supple, No JVD, No thyromegaly, +2 carotid pulse wo bruit, No LAD Lungs: CTAB Cardiovascular: RRR, Normal S1, Normal S2, without murmur Abdomen: non-tender, non-distended Extremities: clear Neurological: no change Internal Medicine Assmt/Plan - Assessment Assessment: 1.sp skin laceration of upper extremetes. 2.DJD. 3.Copd 4.MAJOR DEPRESSION. - Plan Plan: CONTINUE ON CURRENT MEDICATION AND WOUND CARE. Nutritional Asmnt/Malnutr-PDOC - Dietary Evaluation Malnutrition Findings (Please click <Entered> for more info): Nutritional Asmnt/Malnutrition Start: 06/12/17 16: 32 Text: Status: Complete Freq: Document 06/12/17 16:32 PABLO (Rec: 06/12/17 16:40 [email or web address] [email or web address]) Nutritional Asmnt/Malnutrition Patient General Information Nutritional Screening Low Risk Diagnosis psychosis Pertinent Medical Hx/Surgical Hx depression, chronic smoking, DJD Subjective Information Pt seen lying in bed at time of viist, awake and alert. Pt reported appetite fine. Per EMR, PO intake 75-100%. Current Diet Order/ Nutrition Support regular Pertinent Medications remeron, theragran Pertinent Labs / cr 0.5 Nutritional Hx/Data Height 1.57 m Height (Calculated Centimeters) 157.5 Current Weight (lbs) 54.431 kg Weight (Calculated Kilograms) 54.4 Weight (Calculated Grams) 42297.1 [place] Body Weight 110 Body Mass Index (BMI) 21.9 Weight Status Approriate GI Symptoms GI Symptoms None Last BM 06/11 Difficult in: None Skin Integrity/Comment: wounds to both extremities Current %PO Good (75-100%) Estimated Nutritional Goals BEE in Kcals: Using Current wt Calories/Kcals/Kg 25-30 Kcals Calculated 2156-5555 Protein: Using Current wt Protein g/k-1.2 Protein Calculated 55-66 Fluid: ml 1375-1650ml (1ml/kcal) Nutritional Problem No current Nutrition Prob Problem N/A Malnutrition Alert Protein-Calorie Malnutrition N/A Is there a minimum of two criteria No selected? Query Text:Check all the applicable criteria. A minimum of two criteria are recommended for diagnosis of either severe or non-severe malnutrition. Intervention/Recommendation Comments 1. Continue with regular diet as ordered. 2. Monitor PO intake, wt, labs and skin integrity 3. F/U as low risk in 7 days, 06/19 Expected Outcomes/Goals Expected Outcomes/Goals 1. PO intake to meet at least 75% of nutritional needs. 2. Wt stability, skin to remain intact, labs to approach WNL.
--- NOTE | 2017-06-19 13:06 | Discharge Summary ---
DATE OF DISCHARGE: 06/19/2017 IDENTIFYING INFORMATION: The patient is a 57-year-old female. HISTORY OF PRESENT ILLNESS: The patient was admitted on a hold for danger to self. The patient cut both of her forearms. The patient was not a very good historian at the beginning, she cannot remember what happened. She admits she cut both of her arms. She reported that she wanted to . When I talked to her, she says no longer feel that way. She denies any auditory or visual hallucination first, then later she admitted to having hallucinations. She has a history of overdosing on Tylenol when she was very young. She sleeps well, eats well. She denies any substance abuse problem with a history of prior suicide attempt as a child. She saw a doctor before because of anxiety and had her on Cymbalta and Klonopin, has not been taking her medication. COURSE IN THE HOSPITAL: The patient was started on Remeron, increased the dose to 30 mg at bedtime, also added Abilify after she admits to hearing voices. The patient progressively got better. She was sleeping well, eating well. She was also continued with Pepcid 20 mg daily. The patient, as she improved, we also managed to get her to go to rehabilitation center for the next 2 weeks to get rehabilitation and also make sure she is stable. She improved, we felt she could be discharged to a lesser level of care. CONDITION ON DISCHARGE: The patient good mood, appropriately groomed. No suicidal ideation, homicidal ideation, no paranoia. Sleeping well, eating well, compliant with her medication. FINAL DIAGNOSES: Major depression, recurrent, severe with psychosis. MEDICAL DIAGNOSES: As per medical doctor. The patient will be going to [facility]. We will follow up with the psychiatrist, primary care physician and therapist. EXPECTED OUTCOME: Stable if the patient complains with the above. [facility]# [id number]
== END 2017-06-19 16:30 | DRG 885 ==
LOC: GERO2 13:09 → GERO 16:43
PROVIDERS: ADMIT Psychiatry & Neurology Psychiatry; ATTEND Psychiatry & Neurology Psychiatry
DX: F33.3 Major depressive disorder, recurrent, severe with psychotic symptoms (principal); F17.210 Nicotine dependence, cigarettes, uncomplicated; M19.90 Unspecified osteoarthritis, unspecified site; S41.112A Laceration without foreign body of left upper arm, initial encounter; S41.111A Laceration without foreign body of right upper arm, initial encounter; J44.9 Chronic obstructive pulmonary disease, unspecified; W45.8XXA Other foreign body or object entering through skin, initial encounter; Y93.89 Activity, other specified; Y92.89 Other specified places as the place of occurrence of the external cause; Y99.8 Other external cause status
CPT/HCPCS: 36415-UA; 80053-TC; 82948-90; 85025-TC; 90899; G0410; J1200; J1630; J2060; Z7610